=== PATIENT | male | born 1985 | race Caucasian/White ===

== ENCOUNTER 2022-04-07 20:54 | Inpatient (IN) | payer OTHER, SELFPAY ==
--- NOTE | ~2022-04-07 | CT_ITS ---
Non-contrast Head CT History: Decreased responsiveness Technique: Axial non-contrast imaging of the brain was performed. Dose reduction technique was used on this scan by utilizing automated exposure control and iterative reconstruction technique. The dose -length product (DLP) was 681.00 mGy-cm. Findings: There is no evidence of intracranial hemorrhage, mass lesion, or acute infarct. Bifrontal encephalomalacia suggests sequelae of remote brain contusions. The ventricles and subarachnoid space s are normal in size. The calvarium appears normal. The visualized paranasal sinuses and mastoid ai r cells are clear. Impression: No acute abnormality seen. 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 Reviewed, dictated and finalized at location . ING TRUCK DRIVER Impression: No acute abnormality seen. 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
--- NOTE | ~2022-04-07 | XR_ITS ---
Portable chest x-ray Comparison: 04/09/2022 Clinical History: Respiratory failure Findings: Lungs are clear, without focal consolidation or pleural effusion. Cardiomediastinal silho uette is stable. Bones and soft tissues are unremarkable. Impression: Normal chest. Reviewed, dictated and finalized at [facility]. LED NURSING PROFESSIONAL Impression: Normal chest.
--- NOTE | ~2022-04-07 | XR_ITS ---
Portable chest x-ray Comparison: 04/08/2022 Clinical History: Respiratory failure Findings: Endotracheal tube and NG tube are in satisfactory positions. Lungs are essentially clear, without focal consolidation or pleural effusion. Cardiomediastinal silhouette is stable. Bones and s oft tissues are unremarkable. Impression: Support tubes, as above. Clear lungs. Reviewed, dictated and finalized at location M. E CARE PHYSICAL THERAPIST Impression: Support tubes, as above. Clear lungs.
--- NOTE | ~2022-04-07 | XR_ITS ---
Portable chest x-ray Comparison: 04/07/2022 Clinical History: Tube placement Findings: Endotracheal tube is present, tip in the right mainstem bronchus. NG tube in satisfactory addition. There is extensive haziness at the left lung with probable left-sided volume loss and leftw krishna mediastinal shift. There is mild groundglass opacity in the right upper lobe, with minimal involv ement in the right lower lobe. Cardiomediastinal silhouette is stable. Bones and soft tissues are un remarkable. Impression: Endotracheal tube tip in the right mainstem bronchus. Retraction required. Extensive left lung haziness with left-sided volume loss, probably representing partial left lung ate lectasis. Underlying pneumonia or pulmonary edema not excluded. Groundglass pulmonary disease in the right lung, with upper lobe predominance. This could reflect pul monary edema, atypical infection, or possibly drug toxicity. Correlate clinically. Reviewed, dictated and finalized at [facility]. LEAD Impression: Endotracheal tube tip in the right mainstem bronchus. Retraction required. Extensive left lung haziness with left-sided volume loss, probably representing partial left lung atelectasis. Underlying pneumonia or pulmonary edema not exc luded. Groundglass pulmonary disease in the right lung, with upper lobe predominance. This could reflect pulmonary edema, atypical infection, or possibly drug toxici ty. Correlate clinically.
--- NOTE | ~2022-04-07 | XR_ITS ---
EXAMINATION: XR chest 1V portable DATE: 04/11/2022 05:35 INDICATION: Respiratory failure. TECHNIQUE: A single frontal view of the chest was obtained. COMPARISON: Chest single view 04/10/2022 FINDINGS: There is no pneumonia, pleural effusion, or pneumothorax. The heart size is normal. There i s an old healed right rib fracture. IMPRESSION: 1. No acute cardiopulmonary disease. Reviewed, dictated and finalized at location A. MANAGER
--- NOTE | ~2022-04-07 | XR_ITS ---
Portable chest x-ray Comparison: None Clinical History: Wheezing, shortness Findings: There is bilateral upper lobe groundglass pulmonary disease. Lung bases are clear. No pleu ral effusion or pneumothorax. Cardiomediastinal silhouette is stable. Bones and soft tissues are unr emarkable. Impression: Upper lobe predominant bilateral groundglass pulmonary disease. Correlate for atypical pulmonary chelsie a pattern, atypical infection, or possibly drug toxicity. Reviewed, dictated and finalized at location . ABLE TRACK CREW CHIEF Impression: Upper lobe predominant bilateral groundglass pulmonary disease. Correlate for a typical pulmonary edema pattern, atypical infection, or possibly drug toxicity.
--- NOTE | ~2022-04-07 | XR_ITS ---
Supine portable view of the abdomen Clinical history: Abdominal pain Findings: NG tube is in satisfactory position. Air distended stomach noted, with otherwise nonspecifi c bowel gas pattern. No evidence for obstruction or free air. No abnormal mass lesion or calcificatio n is seen. Osseous structures are intact. Impression: NG tube in satisfactory position. Reviewed, dictated and finalized at [facility]. CUSTOMER DEVELOPMENT Impression: NG tube in satisfactory position.
--- NOTE | ~2022-04-07 | XR_ITS ---
Portable chest x-ray Comparison: 04/08/2022 at 12:45 AM Clinical History: ET tube repositioning Findings: Endotracheal tube and NG tube are in satisfactory positions. There is reexpansion of the l eft lung as compared to recent prior exam. Upper lobe prominent groundglass pulmonary disease is agai n present. Cardiomediastinal silhouette is stable. Bones and soft tissues are unremarkable. Impression: Support tubes in satisfactory position, as above. Interval placement of left lung. Upper lobe predominant bilateral groundglass pulmonary disease. Correlate for atypical infection, aty pical pulmonary edema, or drug toxicity. Reviewed, dictated and finalized at location . SCIENTIST Impression: Support tubes in satisfactory position, as above. Interval placement of left dalila ng. Upper lobe predominant bilateral groundglass pulmonary disease. Correlate for a typical infection, atypical pulmonary edema, or drug toxicity.
[2022-04-07 21:01] VITALS: BP 103/79; PULSE 115; RESP 14; TEMP 36.8; O2SAT 95
--- NOTE | 2022-04-07 21:02 | ECG_ITS ---
Measurements Intervals [place] Rate: 114 P: CT: 0 QRS: 93 QRSD: 98 T: 32 QT: 330 QTc: 455 Interpretive Statements ATRIAL FIBRILLATION WITH RAPID VENTRICULAR RESPONSE RIGHT AXIS DEVIATION INCOMPLETE RIGHT BUNDLE BRANCH BLOCK BASELINE ARTIFACT- I, II, AVR, AVL, AVF, V3-V6 ABNORMAL ECG NO PREVIOUS ECG AVAILABLE FOR COMPARISON Electronically Signed On 04-08-2022 6:37:29 OIL PAINT SHADER by Cuong Thompson D.O.
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
--- NOTE | 2022-04-07 21:27 | PC.NURSE ---
pt. moved to rm 6 due to patients in 5 talking pt. states They need to quit fucking talking about me I can hear them PT. states I can read peoples minds when they are going to harm me.
[2022-04-07 21:31] VITALS: BP 104/69; PULSE 115; PULSE 119; RESP 14; RESP 25; O2SAT 93
[2022-04-07 21:41] LABS: Glucose Point of Care 217 mg/dl (65-105)
--- NOTE | 2022-04-07 21:44 | PC.NURSE ---
PT. refusing to provide staff w/ urine sample, to have an ABG drawn or a breathing tx. pt. states I don't need it and you have all the blood you knee.
[2022-04-07 21:46] LABS: Basophils Percent Auto 0.7 % (0.2-1.2); Eosinophils Absolute Auto 0.2 K/mm3 (0-0.3); Eosinophils Percent Auto 3.4 % (0-4.4); Hematocrit 44.8 % (42.0-52.0); Hemoglobin 14.4 g/dL (14.0-18.0); Immature Granulocyte Absolute 0.02 K/mm3 (0.00-0.031); Immature Granulocyte Percent A 0.3 % (0-0.5); Lymphocytes Absolute Auto 1.67 K/mm3 (0.9-3.2); Lymphocytes Percent Auto 28.3 % (18.3-44.2); Mean Corpuscular HGB Conc 32.1 g/dl (32-36); Mean Corpuscular Hemoglobin 28.9 pg (26-34); Mean Corpuscular Volume 89.8 fl (80-100); Mean Platelet Volume 11.1 fl (7.4-10.4); Monocytes Absolute Auto 0.7 K/mm3 (0.1-0.6); Monocytes Percent Auto 11.2 % (2.6-8.5); Neutrophils Absolute Auto 3.3 K/mm3 (1.3-6.7); Neutrophils Percent Auto 56.1 % (45.5-73.1); Platelet Count Result 193 k/mm3 (150-375); Red Blood Count 4.99 M/mm3 (4.6-6.20); Red Cell Distribution Width 12.5 % (11.5-14.5); White Blood Count 5.9 K/mm3 (4.5-10.0)
[2022-04-07 21:56] LABS: Alanine Aminotransferase 96 U/L (6-50); Albumin Level 4.4 g/dL (3.5-5.1); Alkaline Phosphatase 78 U/L (38-126); Anion Gap 8 mmol/L (8-16); Aspartate Amino Transferase 180 U/L (17-59); Bilirubin,Total 0.3 mg/dL (0.2-1.3); Blood Urea Nitrogen 18 mg/dL (9-20); Calcium 8.8 mg/dL (8.4-10.2); Carbon Dioxide 29 mmol/L (22-30); Chloride 98 mmol/L (98-107); Estimated Glomerular Filt Rate > 60; Glucose 265 mg/dL (65-110); Lactic Acid Reflex 3.8 mmol/L (0.7-2.0); Potassium 3.6 mmol/L (3.4-5.0); Sodium 135 mmol/L (137-145)
[2022-04-07 22:01] LABS: Partial Thromboplastin Time 26.8 SECONDS (22.3-36.8)
[2022-04-07 22:05] LABS: Ethanol < 10 mg/dL (<10); NT Pro B Type Natriuretic Pept 79 pg/mL (19.9-100)
[2022-04-07 22:10] LABS: Creatine Kinase 168 U/L (55-170); Magnesium 2.3 mg/dL (1.6-2.3)
[2022-04-07 22:23] LABS: Troponin I < 0.012 ng/mL (0.000-0.034)
--- NOTE | 2022-04-07 22:32 | PC.NURSE ---
pt. removed all monitoring devices and refuses to keep them on.
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
[2022-04-07 23:22] VITALS: BP 135/94; PULSE 134; RESP 14; O2SAT 100
--- NOTE | 2022-04-07 23:35 | PC.NURSE ---
1108 ERP placed nasal trumpet on R nare
[2022-04-07 23:56] LABS: Barbiturate Screen Urine Negative (Negative); Benzodiazepines Screen Urine Negative (Negative)
[2022-04-07 23:57] LABS: Cannabinoid Screen Urine Positive (Negative); Cocaine Screen Urine Negative (Negative); Methadone Screen Urine Negative (Negative); Opiate Screen Urine Negative (Negative); Phencyclidine Screen Urine Negative (Negative)
[2022-04-08] VITALS (51 sets, daily range): BP systolic 101–127; BP diastolic 63–88; PULSE 52–84; RESP 13–19; TEMP 36.3–37.3; O2SAT 95–100; BMI 21.7
[2022-04-08 00:11] LABS: Appearance Urine Clear (Clear); Bilirubin Urine Negative (Negative); Blood Urine 2+ (Negative); Color Urine Yellow (Yellow); Glucose Urine UA Trace mg/dL (Negative); Ketones Urine Negative (Negative); Leukocyte Esterase Ur Negative LEU/UL (Negative); Nitrate Urine Negative (Negative); Protein Urine 2+ mg/dL (Negative); Specific Grav Ur >= 1.030 (1.001-1.035); Urobilinogen Urine 0.2 mg/dL (<2.0); pH Urine 5.5 (5.0-9.0)
[2022-04-08 00:13] LABS: Amphetamine Screen Urine Positive (Negative)
[2022-04-08 00:18] LABS: Bacteria Urine Trace /hpf; Mucus Urine Rare /lpf; RBC Urine 21-50 /hpf (0-2); Squamous Epithelial Cell Urine Rare /hpf (Few)
[2022-04-08 00:19] LABS: Add Urine Microscopic? YES
--- NOTE | 2022-04-08 00:30 | PC.NURSE ---
Addendum entered by Victorina Valderrama RN 04/08/22 02:11: 50 mg Rocuronium given IVP Original Note: 0030 rocuronium IVP given VORB ERP Carrero 0031 pt. intubated w/ 8.0 ET tube measuring 26 at the teeth. bilat. breath sounds heard by ERP and positive color change was noted
[2022-04-08 00:43] LABS: Reflex Lactic Acid Yes or No Add Lactic
--- NOTE | 2022-04-08 00:55 | PC.NURSE ---
pt. ET tube pulled 4 CM ET tube now measuring at 22 at the lip.
[2022-04-08] MEDS: SODIUM CHLORIDE 0.9% IV 1,000 ML 999 ML IV CONT (01:00)
[2022-04-08 01:09] LABS: Alveolar/Arterial O2 Gradient 301.5 mmHg; Base Excess ABG -4.3 mEq/l (+/-2.0); Carboxyhemoglobin 1.3 % THb (0-2.0); Fractional Inspired Oxygen 70 %; HCO3 ABG 21.7 mEq/l (22.0-26.0); Methemoglobin ABG 0.4 %THb (0-1.5); Oxygen Content ABG 20.4 %vol (16.0-22.0); Oxygen Saturation ABG 98.8 % (95.0-100.0); Oxyhemoglobin 96.8 % THb (90.0-100.0); PCO2 ABG 43.1 mmHg (35.0-45.0); PO2 ABG 151.3 mmHg (80.0-100.0); PO2 FiO2 Ratio Arterial Blood 2.16 %; Reduced Hemoglobin 1.5 %THb (0-5.0); Site Drawn RIGHT BRACHIAL; Total Hemoglobin 14.8 g/dL (12.0-18.0)
[2022-04-08] MEDS: SODIUM CHLORIDE 0.9% IV 1,000 ML 999 ML (01:09)
[2022-04-08 01:10] LABS: Arterial Blood Gas Vent Mode CMV; Arterial Blood Gas Ventilator rate 18 /MIN; Device VENTILATOR
[2022-04-08 01:11] LABS: Arterial Blood Gas PEEP 5 cmH2O; Arterial Blood Gas Tidal Volume 420 ml
[2022-04-08] MEDS: PROPOFOL IV EMULSION 100 ML 2.12 MG IV CONT (01:20)
[2022-04-08] MEDS: SODIUM CHLORIDE 0.9% IV 1,000 ML 125 ML IV CONT (02:53)
--- NOTE | 2022-04-08 02:57 | ADMGEN ---
This patient, Hernandez Saldaña, was admitted to Intensive Care Unit-1. Patient/family oriented to hospital policies and general routines including ID bracelet, bed and alarms, visiting hours, pain management, procedures, bathroom and other care routines, personal items, smoking policy, room service/diet, and visiting hours. Information on how to activate the Rapid Response Team has been discussed. Patient/Family are encouraged to report perceived risks to care and to ask questions if they do not understand what they are told or what they should do.
[2022-04-08] MEDS: ALBUTEROL SULFATE NEB 2.5 MG/3 ML INH INHALATION ×4 (03:04→19:37)
[2022-04-08] MEDS: IPRATROPIUM BR 0.02% INH SOLN 0.5 MG/2.5 ML VIAL INHALATION ×4 (03:04→19:36)
[2022-04-08 03:38] LABS: Lactic Acid 1.2 mmol/L (0.7-2.0)
[2022-04-08 05:58] LABS: Base Excess ABG -2.2 mEq/l (+/-2.0); Carboxyhemoglobin 0.3 % THb (0-2.0); Fractional Inspired Oxygen 30 %; HCO3 ABG 22.8 mEq/l (22.0-26.0); Methemoglobin ABG 0.3 %THb (0-1.5); Oxygen Content ABG 18.5 %vol (16.0-22.0); Oxygen Saturation ABG 97.3 % (95.0-100.0); Oxyhemoglobin 95.7 % THb (90.0-100.0); PCO2 ABG 39.9 mmHg (35.0-45.0); PO2 FiO2 Ratio Arterial Blood 3.23 %; Reduced Hemoglobin 3.7 %THb (0-5.0); Total Hemoglobin 13.7 g/dL (12.0-18.0); pH ABG 7.375 (7.350-7.450)
[2022-04-08 06:00] LABS: Arterial Blood Gas PEEP 5 cmH2O; Arterial Blood Gas Tidal Volume 420 ml; Arterial Blood Gas Vent Mode CMV; Arterial Blood Gas Ventilator rate 18 /MIN; Device VENTILATOR; Site Drawn LEFT BRACHIAL
[2022-04-08] MEDS: PROPOFOL IV EMULSION 100 ML 12.74 MG IV CONT (06:31)
--- NOTE | 2022-04-08 06:47 | ED.OVERDOSE ---
HPI - Overdose General Chief Complaint: Overdose Stated Complaint: od Time Seen by Provider: 04/07/22 21:02 Source: patient, EMS and RN notes reviewed Mode of arrival: EMS Limitations: intoxication History of Present Illness HPI Narrative: This is a 37 year old male who presents viA EMS for evaluation of overdose. 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 EMS gave patient 2 mg narcan IM and 2 mg narcan IV. Patient became responsive and combative. [place] Police have arrived with patient. Patient states that he has history of CHF and bone CA . He states he was diagnosed 3 years ago but he has not had medical care since. He reports history of using heroin over 15 years ago but denies any drugs today. He states he does not know what happen. Patient is difficult history and paranoid. He denies any current pain or issues. Related Data Home Medications Medication Instructions Recorded Confirmed No Home Medications 04/08/22 04/08/22 Allergies Allergy/AdvReac Type Severity Reaction Status Date / Time No Known Allergies Allergy Verified 04/07/22 21:31 Review of Systems Review of Systems: ROS unobtainable: Yes other (intoxication) Constitutional: Constitutional: Denies weakness Cardiovascular: Cardiovascular: Denies syncope, Denies rapid heart rate, Denies irregular heart rhythm, Denies leg edema and Denies dyspnea Respiratory: Respiratory: Denies chest congestion, Denies hemoptysis, Denies excessive phlegm production and Denies dyspnea Gastrointestinal: Gastrointestinal: Denies abdominal pain, Denies hematochezia, Denies diarrhea and Denies vomiting Genitourinary: Genitourinary: Denies hematuria, Denies dysuria, Denies penile discharge and Denies testicular pain Musculoskeletal: Musculoskeletal: Denies joint swelling, Denies loss of height and Denies muscle weakness Neurologic: Denies syncope, Denies focal weakness and Denies weakness PMFSH Past Medical History Medical History (Updated 04/08/22 @ 15:51 by Isabela Carrero MD) Medical history unknown Surgical History Surgical History (Updated 04/08/22 @ 15:22 by Isabela Carrero MD) Surgical history unknown Social History Social History Spiritual care concerns: No Exam Const: General: alert Nutritional Appearance: thin Limitations: behavioral limitations Other: oriented to person and age, he is refusing to answer all questions HENMT: Head: normal to inspection Face and sinus: normal facial exam Eyes: EOM: EOMs intact bilaterally Other: pinpoint pupils Neck: Neck: normal visual inspection Chest: Chest palpation & inspection: normal inspection of the chest Resp: Effort & Inspection: normal respiratory effort Auscultation: wheezes expiratory wheezes and throughout Cardio: Rate: tachycardic Rhythm: abnormal rhythm Heart sounds: no murmurs GI: GI Palp: Yes Soft to palpation, No Tenderness to palpation present (GI), No Guarding due to palpation present (GI) and No Rigid due to palpation Auscultation: normal bowel sounds : Penis: Yes normal penis and Yes circumcised Skin: General skin exam: normal color Rashes: no rashes Neuro: General: moves all extremities, no focal motor deficits and CN's II-XI intact bilaterally Cranial nerves: Yes Nystagmus not present Speech: normal speech Extrem: General: normal to inspection and no pedal edema Psych: Appearance: disheveled Affect: Irritable affect present Attitude: Belligerent attititude/behavior present (intermittent) and Refuses to answer (attititude/behavior) Insight: Poor insight present (Psych) Course Course Emergency Course: Patient presented to ER after presumed drug overdose. Patient was paranoid and intermittently cooperative. During the course of visit, he started becoming less cooperative. He took out his IV and he was asking to leave. Patient could not
[2022-04-08 07:47] LABS: Glucose Point of Care 75 mg/dl (65-105)
--- NOTE | 2022-04-08 07:57 | ECG_ITS ---
Measurements Intervals [place] Rate: 58 P: 71 AR: 133 QRS: 88 QRSD: 95 T: 78 QT: 430 QTc: 425 Interpretive Statements SINUS BRADYCARDIA BORDERLINE ECG COMPARED TO ECG 04/07/2022 21:33:05 SINUS BRADYCARDIA NOW PRESENT Electronically Signed On 04-08-2022 9:42:30 EXECUTIVE TEAM LEADER by Cuong Thompson D.O.
[2022-04-08 08:54] LABS: Basophils Percent Auto 0.4 % (0.2-1.2); Eosinophils Absolute Auto 0.1 K/mm3 (0-0.3); Eosinophils Percent Auto 0.6 % (0-4.4); Hemoglobin 13.1 g/dL (14.0-18.0); Immature Granulocyte Absolute 0.02 K/mm3 (0.00-0.031); Immature Granulocyte Percent A 0.2 % (0-0.5); Lymphocytes Percent Auto 21.2 % (18.3-44.2); Mean Corpuscular HGB Conc 32.8 g/dl (32-36); Mean Corpuscular Hemoglobin 29.7 pg (26-34); Mean Corpuscular Volume 90.7 fl (80-100); Mean Platelet Volume 10.7 fl (7.4-10.4); Monocytes Percent Auto 10.4 % (2.6-8.5); Neutrophils Absolute Auto 6.3 K/mm3 (1.3-6.7); Neutrophils Percent Auto 67.2 % (45.5-73.1); Platelet Count Result 188 k/mm3 (150-375); Red Blood Count 4.41 M/mm3 (4.6-6.20); Red Cell Distribution Width 12.8 % (11.5-14.5); White Blood Count 9.4 K/mm3 (4.5-10.0)
[2022-04-08 09:06] LABS: Ammonia < 9 umol/L (9-30)
[2022-04-08 09:07] LABS: Alanine Aminotransferase 71 U/L (6-50); Albumin Level 3.4 g/dL (3.5-5.1); Alkaline Phosphatase 74 U/L (38-126); Anion Gap 3 mmol/L (8-16); Aspartate Amino Transferase 69 U/L (17-59); Bilirubin,Total 0.4 mg/dL (0.2-1.3); Blood Urea Nitrogen 15 mg/dL (9-20); Calcium 7.8 mg/dL (8.4-10.2); Carbon Dioxide 27 mmol/L (22-30); Chloride 105 mmol/L (98-107); Creatine Kinase 628 U/L (55-170); Estimated Glomerular Filt Rate > 60; Glucose 73 mg/dL (65-110); Magnesium 2.1 mg/dL (1.6-2.3); Phosphorus 2.9 mg/dL (2.5-4.5); Sodium 135 mmol/L (137-145)
[2022-04-08] MEDS: LACTATED RINGERS 1,000 ML 100 ML IV CONT (09:19)
[2022-04-08] MEDS: ENOXAPARIN 40 MG/0.4 ML SYRINGE SUB-Q (09:22)
[2022-04-08] MEDS: PANTOPRAZOLE SODIUM IV 40 MG VIAL IV PUSH (09:22)
[2022-04-08] MEDS: MINERAL OIL/WHITE PETROLATUM OINTMENT 1 APPLIC EACH EYE ×2 (09:23→20:54)
--- NOTE | 2022-04-08 09:45 | WPDCNINT ---
Assessment and Plan Assessment and plan (1) Acute respiratory failure: Code(s): J96.00 - Acute respiratory failure, unspecified whether with hypoxia or hypercapnia Status: Acute Assessment and Plan: Acute Respiratory failure secondary to toxic encephalopathy Continue full mechanical ventilation support to prevent hypoxemia/hypercarbia and end organ damage. ABG and PCXR reviewed and will repeat in am. IV access patient for a weaning trial this morning and I placed him on pressure support 5/5 patient kept on going into apnea mode. Patient was placed back on CMV I will give him more time for the drugs to wear off before re attempting weaning trial Treatment for aspiration pneumonia as below (2) Encephalopathy: Code(s): G93.40 - Encephalopathy, unspecified Status: Acute Assessment and Plan: Likely toxic encephalopathy secondary to drug abuse. Patient admitted to taking amphetamine marijuana and alcohol His toxicology screen was positive for amphetamine and marijuana although his alcohol level was negative Head CT No acute abnormality seen. 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 Monitor for signs of seizures Check ammonia and TSH level (3) Aspiration pneumonia: Code(s): J69.0 - Pneumonitis due to inhalation of food and vomit Status: Acute Assessment and Plan: Chest x-ray suggest infiltrate in the right upper lobe which could be aspiration Empiric Zosyn and doxycycline to cover for aspiration and community-acquired pneumonia Blood and sputum culture Check [place] Legionella and pneumococcal antigen to cover for community-acquired pneumonia (4) Rhabdomyolysis: Code(s): M62.82 - Rhabdomyolysis Status: Acute Assessment and Plan: CK mildly elevated. Monitor level Continue IV fluids Plan DVT prophylaxis -Lovenox Stress ulcer prophylaxis -Protonix Nutrition -start Tube Feeds if unable to extubate today Code Status - Full Code Total Critical Care Time - minutes Due to a high probability of clinically significant, life threatening deterioration, the patient required my highest level of preparedness to intervene emergently and I personally spent this critical care time directly and personally managing the patient. This critical care time included obtaining a history; examining the patient; pulse oximetry; ordering and review of studies; arranging urgent treatment with development of a management plan; evaluation of patient's response to treatment; frequent reassessment; and discussions with other providers. It was exclusive of separately billable procedures and treating other patients and teaching time. Please see Assessment and Plan section and the rest of the note for further information on patient assessment and treatment Copying Machine Mechanic Consult Note Consult date: 04/08/22 Reason for consult: Acute respiratory failure, encephalopathy HPI: Hernandez Saldaña is a 37 year old male with unknown past medical surgical family and social history who was brought to ER yesterday after he was found unresponsive reconstruction side. Patient was found unresponsive with snoring respiration by police. Patient was given Narcan. In ER patient was responsive but confused and drowsy. Later in the ED patient became uncooperative, agitated and combative. He was sedated intubated by ED physician. Urine drug screen positive for methamphetamine and marijuana. Patient was intubated and sedated and admitted to ICU for further evaluation management. No past notes in the chart no detailed in ED physician note in the chart information was mostly obtained from the sign-out I received from the ED physician last night. No family available. Patient now on holding sedation is responsive and following commands and admitted by noting his head to taking meth alcohol and marijuana yesterday. Review of Systems Review of Systems: ROS unobtainable:
[2022-04-08] MEDS: DOXYCYCLINE 100 MG/NS 100 ML 100 MG/100 ML BAG IVPB ×2 (10:56→20:54)
[2022-04-08 11:38] LABS: Glucose Point of Care 73 mg/dl (65-105)
[2022-04-08] MEDS: DEXTROSE 5%/LACTATED RINGERS 1,000 ML 100 ML IV CONT ×2 (12:13→23:58)
--- NOTE | 2022-04-08 14:06 | PCDIET ---
Brief note: Propofol was started @12.75 ml/h for total 336 kcals. Recommended keeping Vital 1.2 @ current rate of 50 ml/h and titrate up once propofol is reduced. Lovely Banks RD LDN
--- NOTE | 2022-04-08 15:31 | PM.IMHP ---
H&P: HPI History of Present Illness Date/Time: 04/08/22 15:31 Chief Complaint: illicite drug OD Narrative: ED-HPI Narrative: This is a 37 year old male who presents viA EMS for evaluation of overdose. ? 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 EMS gave patient 2 mg narcan IM and 2 mg narcan IV.? Patient became responsive and combative. [place] Police have arrived with patient. ? Patient states that he has history of CHF and bone CA .? He states he was diagnosed 3 years ago but he has not had medical care since.? He reports history of using heroin over 15 years ago but denies any drugs today. He states he does not know what happen.? Patient is difficult history and paranoid. ? He denies any current pain or issues.? patient was brought to the emergency department by EMS patient was found difficulty with breathing and positive methenamine and cannabis, in ER patient was uncooperative combative and patient was intubated and admitted into ICU a trial of weaning the patient off ventilator failed and patient is currently intubated unable few symptoms or history. patient is admitted with respiratory failure remain in hospital for 2 midnights Review of Systems Review of Systems: ROS unobtainable: Yes unobtainable due to endotracheal tube PMFSH Past Medical History Medical History (Updated 04/08/22 @ 15:22 by Isabela Carrero MD) Medical history unknown Surgical History Surgical History (Updated 04/08/22 @ 15:22 by Isabela Carrero MD) Surgical history unknown Social History Social History Spiritual care concerns: No Meds Home Medications and Allergies Home Medications Medication Instructions Recorded Confirmed Type No Home Medications 04/08/22 04/08/22 History Allergies Allergy/AdvReac Type Severity Reaction Status Date / Time No Known Allergies Allergy Verified 04/07/22 21:31 Vital Signs Vital Signs - 24 hr 04/07/22 21:01 04/07/22 21:31 04/07/22 21:31 Temperature 98.2 F Pulse Rate 115 H 115 H Respiratory Rate 14 14 Blood Pressure 103/79 Pulse Oximetry 95 Oxygen Delivery Room Air Fraction of Inspired Oxygen 04/07/22 21:31 04/07/22 23:22 04/08/22 00:48 Temperature Pulse Rate 119 H 134 H Respiratory Rate 25 H 14 Blood Pressure 104/69 135/94 H Pulse Oximetry 93 100 100 Oxygen Delivery Mechanical Ventilation Fraction of Inspired Oxygen 100 04/08/22 00:53 04/08/22 01:08 04/08/22 01:20 Temperature Pulse Rate 84 82 Respiratory Rate 18 18 Blood Pressure 118/81 Pulse Oximetry 100 100 Oxygen Delivery Mechanical Ventilation Fraction of Inspired Oxygen 70 04/08/22 01:25 04/08/22 01:30 04/08/22 01:21 Temperature Pulse Rate 80 77 81 Respiratory Rate 19 19 18 Blood Pressure Pulse Oximetry 100 Oxygen Delivery Fraction of Inspired Oxygen 04/08/22 01:30 04/08/22 01:31 04/08/22 01:43 Temperature Pulse Rate 78 77 74 Respiratory Rate 18 18 18 Blood Pressure 119/88 112/78 Pulse Oximetry 100 100 100 Oxygen Delivery Fraction of Inspired Oxygen 04/08/22 01:45 04/08/22 01:46 04/08/22 02:00 Temperature Pulse Rate 76 77 75 Respiratory Rate 18 18 18 Blood Pressure 114/81 112/78 Pulse Oximetry 100 100 100 Oxygen Delivery Fraction of Inspired Oxygen 04/08/22 02:00 04/08/22 02:49 04/08/22 02:30 Temperature Pulse Rate 74 68 81 Respiratory Rate 18 18 18 Blood Pressure Pulse Oximetry 100 98 Oxygen Delivery Mechanical Ventilation Fraction of Inspired Oxygen 30 04/08/22 02:50 04/08/22 03:07 04/08/22 03:11 Temperature Pulse Rate 70 70 70 Respiratory Rate 18 18 Blood Pressure Pulse Oximetry 95 Oxygen Delivery Mechanical Ventilation Fraction of Inspired Oxygen 30 04/08/22 03:00 04/08/22 04:00 04/08/22 04:00 Temperature 97.7 F Pulse Rate 67 67 67 Respirato
[2022-04-08 17:21] LABS: Glucose Point of Care 93 mg/dl (65-105)
[2022-04-08] MEDS: PROPOFOL IV EMULSION 100 ML 14.87 MG IV CONT (20:24)
[2022-04-08 23:59] LABS: Glucose Point of Care 105 mg/dl (65-105)
[2022-04-09] VITALS (28 sets, daily range): BP systolic 114–148; BP diastolic 63–86; PULSE 58–93; RESP 12–20; TEMP 36.4–37.2; O2SAT 97–100
[2022-04-09] MEDS: IPRATROPIUM BR 0.02% INH SOLN 0.5 MG/2.5 ML VIAL INHALATION ×4 (02:00→21:26)
[2022-04-09] MEDS: ALBUTEROL SULFATE NEB 2.5 MG/3 ML INH INHALATION ×4 (02:00→21:26)
[2022-04-09] MEDS: PROPOFOL IV EMULSION 100 ML 14.87 MG IV CONT (04:20)
[2022-04-09 04:57] LABS: Basophils Absolute Auto 0.1 K/mm3 (0.0-0.1); Basophils Percent Auto 0.7 % (0.2-1.2); Eosinophils Absolute Auto 0.2 K/mm3 (0-0.3); Eosinophils Percent Auto 2.3 % (0-4.4); Hematocrit 39.2 % (42.0-52.0); Hemoglobin 12.7 g/dL (14.0-18.0); Immature Granulocyte Absolute 0.02 K/mm3 (0.00-0.031); Immature Granulocyte Percent A 0.3 % (0-0.5); Lymphocytes Absolute Auto 1.31 K/mm3 (0.9-3.2); Lymphocytes Percent Auto 17.9 % (18.3-44.2); Mean Corpuscular HGB Conc 32.4 g/dl (32-36); Mean Corpuscular Hemoglobin 29.9 pg (26-34); Mean Corpuscular Volume 92.2 fl (80-100); Mean Platelet Volume 11.5 fl (7.4-10.4); Monocytes Absolute Auto 0.9 K/mm3 (0.1-0.6); Monocytes Percent Auto 11.8 % (2.6-8.5); Neutrophils Absolute Auto 4.9 K/mm3 (1.3-6.7); Platelet Count Result 197 k/mm3 (150-375); Red Blood Count 4.25 M/mm3 (4.6-6.20); White Blood Count 7.3 K/mm3 (4.5-10.0)
[2022-04-09 05:02] LABS: Alveolar/Arterial O2 Gradient 65.4 mmHg; Arterial Blood Gas PEEP 5 cmH2O; Arterial Blood Gas Vent Mode CMV; Arterial Blood Gas Ventilator rate 18 /MIN; Base Excess ABG 2.2 mEq/l (+/-2.0); Device VENTILATOR; Fractional Inspired Oxygen 30 %; HCO3 ABG 27.8 mEq/l (22.0-26.0); Methemoglobin ABG 0.2 %THb (0-1.5); Modified Allen's Test Unable to perform; Oxygen Content ABG 18.1 %vol (16.0-22.0); Oxyhemoglobin 96.5 % THb (90.0-100.0); PCO2 ABG 47.2 mmHg (35.0-45.0); Reduced Hemoglobin 3.3 %THb (0-5.0); Site Drawn RIGHT RADIAL; Total Hemoglobin 13.3 g/dL (12.0-18.0); pH ABG 7.388 (7.350-7.450)
[2022-04-09 05:03] LABS: Arterial Blood Gas Tidal Volume 420 ml
[2022-04-09 05:10] LABS: Alanine Aminotransferase 59 U/L (6-50); Albumin Level 3.3 g/dL (3.5-5.1); Alkaline Phosphatase 67 U/L (38-126); Anion Gap 2 mmol/L (8-16); Aspartate Amino Transferase 55 U/L (17-59); Bilirubin,Total 0.4 mg/dL (0.2-1.3); Blood Urea Nitrogen 14 mg/dL (9-20); Calcium 8.1 mg/dL (8.4-10.2); Carbon Dioxide 29 mmol/L (22-30); Chloride 104 mmol/L (98-107); Estimated CRCL calculation 90 ml/min; Estimated Glomerular Filt Rate > 60; Glucose 117 mg/dL (65-110); Potassium 3.9 mmol/L (3.4-5.0); Sodium 135 mmol/L (137-145)
--- NOTE | 2022-04-09 07:46 | PC.NURSE ---
At 0708, patients ventilator alarms began to sound low tidal volume , this nurse and the shift production supervisor nurse went to assess patient condition. Patient at time was drowsy with ventilator alarms still sounding. Patient was suctioned out and alarms resolved. Patient became alert after suctioning and continued to become increasingly agitated. Patient currently on 35 mcg/kg/min of propofol for sedation on vent. Patient started thrashing around, kicking and grabbing at staff. This nurse and a second nurse trying to calm and redirect patient. Patient became even more agitated grabbing at tubes and lines. Patient got ahold of ET and OG tubes while nursing staff still intervening. Patient pulled both ET tubes and OG tubes out of placement and was declared self extubated at 0710. Propofol and tube feedings placed on hold. A third nurse assisted with placement of 4L NC of supplemental oxygen in place. Patient saturations noted to be at 100% with good respiratory drive. Patient alert and speaking clearly. Respiratory therapy notified, and Emergency room physician notified who came up to ICU room [address] and [address] Dr[address] Ivan called and updated via telephone.
[2022-04-09 08:07] LABS: Creatine Kinase 946 U/L (55-170)
--- NOTE | 2022-04-09 08:51 | WPDINTPN ---
Progress Note: A&P Assessment and Plan (1) Acute respiratory failure: Code(s): J96.00 - Acute respiratory failure, unspecified whether with hypoxia or hypercapnia Status: Acute Assessment and Plan: Acute Respiratory failure secondary to toxic encephalopathy I attempted weaning trial yesterday but patient did not pass weaning trial due to multiple episodes of apnea despite him being awake and following commands intermittently. this morning he self-extubated. Currently on nasal cannula and doing well. no respiratory distress. no stridor or wheezing continue to monitor ABG and chest x-ray reviewed incentive spirometry up in chair Treatment for aspiration pneumonia as below (2) Encephalopathy: Code(s): G93.40 - Encephalopathy, unspecified Status: Acute Assessment and Plan: Likely toxic encephalopathy secondary to drug abuse. Patient admitted to taking amphetamine marijuana denies any suicidal or homicidal ideation or attempts His toxicology screen was positive for amphetamine and marijuana although his alcohol level was negative Head CT No acute abnormality seen. 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 Monitor for signs of seizures normal ammonia and TSH level (3) Aspiration pneumonia: Code(s): J69.0 - Pneumonitis due to inhalation of food and vomit Status: Acute Assessment and Plan: Chest x-ray suggest infiltrate in the right upper lobe which could be aspiration currently on empiric Zosyn and doxycycline to cover for aspiration and community-acquired pneumonia I will switch to p.o. Augmentin Blood cultures pending pending Legionella and pneumococcal antigen (4) Rhabdomyolysis: Code(s): M62.82 - Rhabdomyolysis Status: Acute Assessment and Plan: CK mildly elevated. Monitor level Continue IV fluids for now Plan DVT prophylaxis -Lovenox Stress ulcer prophylaxis -Protonix Nutrition - start regular diet Code Status - Full Code incentive spirometry, kevin Parkinson in chair Subjective Date/time seen: 04/09/22 yesterday patient was trial for weaning and had multiple apnea episodes hence patient was not extubated. This morning he self-extubated and is doing well. he is now on 4 L nasal cannula and saturating adequately. he is alert awake oriented and in no respiratory distress. he admitted to using methamphetamine and marijuana but denies any alcohol intake. Denies any suicidal homicidal ideation. does not take any medications and states that he has history of PTSD. 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 At this time he states he is hungry and would like to eat food at denies any complaints. Patient denies fever, chest pain, shortness of breath, cough, nausea vomiting, abdominal pain,, diarrhea, headache or constipation. All other systems were reviewed and were negative Review of Systems Review of Systems: All systems reviewed & are unremarkable except as noted in HPI and below ( subjective) Exam Narrative: General: Pt is alert awake and in NAD Lungs/Chest: Trachea central Clear BS B/L, No crackles or wheezing. Cardiac: RRR. Normal S1 S2. No murmurs Circulation: Pedal pulses are intact and symmetrical. Abdomen: Normal bowel sounds.. Soft. NT. ND. Extremities: No clubbing, cyanosis or edema. Warm : Saha in place Neurologic: Follows commands. Moves all 4 extremities PERRL alert oriented Skin: multiple tattoos all over body Objective Data Vital Signs Vital Signs: Vital Signs - 24 hr 04/08/22 10:00 04/08/22 10:00 04/08/22 10:30 Temperature Pulse Rate 67 67 56 L Respiratory Rate 18 Blood Pressure 123/70 Pulse Oximetry 97 98 Oxygen Delivery Mechanical Ventilation Oxygen Flow Rate Fraction of Inspired Oxygen 30 04/08/22 11:42 04/08/22 11:45 04/08/22 11:51 Temperature 36.4 C Pulse Rate 55 L Respiratory Rate 16 Blood Pressure 123/7
[2022-04-09] MEDS: AMOXICILLIN/CLAVULANATE K 875-125 MG TAB 1 TABLET PO ×2 (09:18→20:59)
--- NOTE | 2022-04-09 10:43 | PCFNICU ---
ICU Rounding Note: Pt current nutrition is Regular. Last recorded weight is 64.7 kg. Bowel Motility:No Bm reported. Labs Reviewed: Na 135, Alb 3.3,Hct 39.2,Hgb 12.7 Meds Noted:Atrovent, Dextrose Skin: WNL Additional Notes: Patient self extubated today. Diet order has been advanced to a regular diet. Tray has been ordered per nursing. Agree with diet orders. Monitoring: No further nutritional interventions needed. Monitor for LOS every 7 days.
[2022-04-09 11:43] LABS: Glucose Point of Care 217 mg/dl (65-105)
[2022-04-09] MEDS: LACTATED RINGERS 1,000 ML 100 ML IV CONT ×2 (11:45→22:31)
--- NOTE | 2022-04-09 16:54 | PM.IMPN ---
Progress Note: A&P Assessment and Plan (1) Acute respiratory failure: Code(s): J96.00 - Acute respiratory failure, unspecified whether with hypoxia or hypercapnia Status: Acute Assessment and Plan: ED-HPI Narrative: This is a 37 year old male who presents [facility] for evaluation of overdose. ? 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 EMS gave patient 2 mg narcan IM and 2 mg narcan IV.? Patient became responsive and combative. [place] [employer] have arrived with patient. ? Patient states that he has history of CHF and bone CA .? He states he was diagnosed 3 years ago but he has not had medical care since.? He reports history of using heroin over 15 years ago but denies any drugs today. He states he does not know what happen.? Patient is difficult history and paranoid. ? He denies any current pain or issues.? 04/09/2022 interval history: patient was brought to the emergency department by EMS patient was found difficulty with breathing and positive methenamine and cannabis, in ER patient was uncooperative combative and patient was intubated and admitted into ICU, today patient self-extubated, currently patient is alert and orient he wants to leave AMA however patient with rhabdomyolysis and elevated CK level, patient kidney function is normal will continue to monitor and hydrate the patient, further recommendation to follow. (2) Aspiration pneumonia: Code(s): J69.0 - Pneumonitis due to inhalation of food and vomit Status: Acute Assessment and Plan: patient was somnolent suspect have aspiration pneumonia upon arrival being treated with doxycycline and Zosyn (3) Rhabdomyolysis: Code(s): M62.82 - Rhabdomyolysis Status: Acute Assessment and Plan: patient had taken methenamine and cannabis upon arrival patient was combative resulted in rhabdomyolysis (4) Encephalopathy: Code(s): G93.40 - Encephalopathy, unspecified Status: Acute Assessment and Plan: secondary to illicit drug methenamine and cannabis currently sedated Subjective Date/time seen: 04/09/22 16:54 ED-HPI Narrative: This is a 37 year old male who presents [facility] for evaluation of overdose. ? 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 EMS gave patient 2 mg narcan IM and 2 mg narcan IV.? Patient became responsive and combative. [place] [employer] have arrived with patient. ? Patient states that he has history of CHF and bone CA .? He states he was diagnosed 3 years ago but he has not had medical care since.? He reports history of using heroin over 15 years ago but denies any drugs today. He states he does not know what happen.? Patient is difficult history and paranoid. ? He denies any current pain or issues.? 04/09/2022 interval history: patient was brought to the emergency department by EMS patient was found difficulty with breathing and positive methenamine and cannabis, in ER patient was uncooperative combative and patient was intubated and admitted into ICU, today patient self-extubated, currently patient is alert and orient he wants to leave AMA however patient with rhabdomyolysis and elevated CK level, patient kidney function is normal will continue to monitor and hydrate the patient, further recommendation to follow. Review of Systems Review of Systems: All systems reviewed & are unremarkable except as noted in HPI and below ( subjective) Exam Narrative: Patient is comfortable, NAD HEENT: Freddy clear and nonicteric LUNGS: normal respiratory effort ABD: not distended Lower extremities: no edema SKIN: nonjaundiced Neuro: patient alert and orientedx3. Objective Data Vital Signs Vital Signs: Vital Signs - 24 hr 04/08/22 17:05 04/08/22 17:11 04/08/22 18:00 Temperature Pulse Rate 56 L 55 L 52 L Respiratory Rate 18 Blood Pressure Pulse Oximetry 100 Oxygen Delivery Mec
[2022-04-09] MEDS: LIDOCAINE 5% PATCH 1 PATCH TRANSDERM (20:08)
[2022-04-09] MEDS: MINERAL OIL/WHITE PETROLATUM OINTMENT 1 APPLIC EACH EYE (21:01)
[2022-04-10] VITALS (12 sets, daily range): BP systolic 110–122; BP diastolic 63–67; PULSE 55–107; RESP 18–20; TEMP 36.4–36.9; O2SAT 97–98
[2022-04-10 05:13] LABS: Hemoglobin 13.6 g/dL (14.0-18.0); Mean Corpuscular HGB Conc 32.4 g/dl (32-36); Mean Corpuscular Hemoglobin 29.4 pg (26-34); Mean Corpuscular Volume 90.7 fl (80-100); Platelet Count Result 197 k/mm3 (150-375); Red Blood Count 4.63 M/mm3 (4.6-6.20); Red Cell Distribution Width 12.6 % (11.5-14.5); White Blood Count 7.2 K/mm3 (4.5-10.0)
[2022-04-10 05:23] LABS: Alanine Aminotransferase 52 U/L (6-50); Albumin Level 3.8 g/dL (3.5-5.1); Alkaline Phosphatase 74 U/L (38-126); Anion Gap 6 mmol/L (8-16); Aspartate Amino Transferase 45 U/L (17-59); Bilirubin,Total 0.7 mg/dL (0.2-1.3); Blood Urea Nitrogen 11 mg/dL (9-20); Calcium 8.8 mg/dL (8.4-10.2); Carbon Dioxide 29 mmol/L (22-30); Chloride 102 mmol/L (98-107); Creatine Kinase 680 U/L (55-170); Estimated CRCL calculation 100 ml/min; Estimated Glomerular Filt Rate > 60; Glucose 115 mg/dL (65-110); Magnesium 1.9 mg/dL (1.6-2.3); Potassium 4.1 mmol/L (3.4-5.0); Sodium 137 mmol/L (137-145)
[2022-04-10] MEDS: AMOXICILLIN/CLAVULANATE K 875-125 MG TAB 1 TABLET PO ×2 (08:25→20:32)
[2022-04-10] MEDS: LACTATED RINGERS 1,000 ML 100 ML IV CONT (08:26)
[2022-04-10] MEDS: ENOXAPARIN 40 MG/0.4 ML SYRINGE SUB-Q (08:28)
[2022-04-10] MEDS: CYCLOBENZAPRINE HCL 10 MG TABLET PO ×2 (08:29→20:30)
--- NOTE | 2022-04-10 12:54 | PM.IMPN ---
Progress Note: A&P Assessment and Plan (1) Acute respiratory failure: Code(s): J96.00 - Acute respiratory failure, unspecified whether with hypoxia or hypercapnia Status: Acute Assessment and Plan: ED-HPI Narrative: This is a 37 year old male who presents [facility] for evaluation of overdose. ? 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 EMS gave patient 2 mg narcan IM and 2 mg narcan IV.? Patient became responsive and combative. [place] [employer] have arrived with patient. ? Patient states that he has history of CHF and bone CA .? He states he was diagnosed 3 years ago but he has not had medical care since.? He reports history of using heroin over 15 years ago but denies any drugs today. He states he does not know what happen.? Patient is difficult history and paranoid. ? He denies any current pain or issues.? 04/10/2022 interval history: patient was brought to the emergency department by EMS patient was found difficulty with breathing and positive methenamine and cannabis, in ER patient was uncooperative combative and patient was intubated and admitted into ICU, on 04/09 patient self-extubated, now out of ICU, currently patient is alert and orient he wants to leave AMA however patient with rhabdomyolysis and elevated CK level which is trending down to 680 today compared to 946 upon arrial, patient kidney function is normal will continue to monitor and hydrate the patient, further recommendation to follow. (2) Aspiration pneumonia: Code(s): J69.0 - Pneumonitis due to inhalation of food and vomit Status: Acute Assessment and Plan: patient was somnolent suspect have aspiration pneumonia upon arrival being treated with doxycycline and Zosyn (3) Rhabdomyolysis: Code(s): M62.82 - Rhabdomyolysis Status: Acute Assessment and Plan: patient had taken methenamine and cannabis upon arrival patient was combative resulted in rhabdomyolysis (4) Encephalopathy: Code(s): G93.40 - Encephalopathy, unspecified Status: Acute Assessment and Plan: secondary to illicit drug methenamine and cannabis currently sedated Subjective Date/time seen: 04/10/22 12:54 ED-HPI Narrative: This is a 37 year old male who presents [facility] for evaluation of overdose. ? 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 EMS gave patient 2 mg narcan IM and 2 mg narcan IV.? Patient became responsive and combative. [place] [employer] have arrived with patient. ? Patient states that he has history of CHF and bone CA .? He states he was diagnosed 3 years ago but he has not had medical care since.? He reports history of using heroin over 15 years ago but denies any drugs today. He states he does not know what happen.? Patient is difficult history and paranoid. ? He denies any current pain or issues.? 04/10/2022 interval history: patient was brought to the emergency department by EMS patient was found difficulty with breathing and positive methenamine and cannabis, in ER patient was uncooperative combative and patient was intubated and admitted into ICU, on 04/09 patient self-extubated, now out of ICU, currently patient is alert and orient he wants to leave AMA however patient with rhabdomyolysis and elevated CK level which is trending down to 680 today compared to 946 upon arrial, patient kidney function is normal will continue to monitor and hydrate the patient, further recommendation to follow. Review of Systems Review of Systems: All systems reviewed & are unremarkable except as noted in HPI and below ( subjective) Exam Narrative: Patient is comfortable, NAD HEENT: Freddy clear and nonicteric LUNGS: normal respiratory effort ABD: not distended Lower extremities: no edema SKIN: nonjaundiced Neuro: patient alert and orientedx3. Objective Data Vital Signs Vital Signs: Vital Signs - 24 hr 04/09/22 14:
[2022-04-10] MEDS: BENZOCAINE/MENTHOL (*BKC) 18 EA LOZENGE 1 LOZENGE PO (20:30)
[2022-04-10] MEDS: MINERAL OIL/WHITE PETROLATUM OINTMENT 1 APPLIC EACH EYE (20:32)
[2022-04-10 20:56] LABS: Pneumococcal Antigen Urine Not Detected (Not Detected)
[2022-04-11] VITALS: PULSE 63
[2022-04-11 04:00] VITALS: PULSE 62
[2022-04-11 04:40] VITALS: BP 112/80; PULSE 62; RESP 16; TEMP 36.6; O2SAT 98
[2022-04-11 05:03] LABS: Hematocrit 47.1 % (42.0-52.0); Hemoglobin 15.6 g/dL (14.0-18.0); Mean Corpuscular HGB Conc 33.1 g/dl (32-36); Mean Corpuscular Hemoglobin 28.8 pg (26-34); Mean Corpuscular Volume 86.9 fl (80-100); Mean Platelet Volume 10.5 fl (7.4-10.4); Platelet Count Result 255 k/mm3 (150-375); Red Blood Count 5.42 M/mm3 (4.6-6.20); Red Cell Distribution Width 12.4 % (11.5-14.5); White Blood Count 7.2 K/mm3 (4.5-10.0)
[2022-04-11 05:22] LABS: Alanine Aminotransferase 73 U/L (6-50); Albumin Level 4.7 g/dL (3.5-5.1); Alkaline Phosphatase 93 U/L (38-126); Anion Gap 8 mmol/L (8-16); Aspartate Amino Transferase 63 U/L (17-59); Bilirubin,Total 0.7 mg/dL (0.2-1.3); Blood Urea Nitrogen 12 mg/dL (9-20); Carbon Dioxide 28 mmol/L (22-30); Chloride 100 mmol/L (98-107); Creatine Kinase 377 U/L (55-170); Estimated CRCL calculation 93 ml/min; Estimated Glomerular Filt Rate > 60; Glucose 112 mg/dL (65-110); Magnesium 1.9 mg/dL (1.6-2.3); Potassium 4.3 mmol/L (3.4-5.0); Sodium 136 mmol/L (137-145)
[2022-04-11 08:53] VITALS: PULSE 66
[2022-04-11] MEDS: AMOXICILLIN/CLAVULANATE K 875-125 MG TAB 1 TABLET PO (08:55)
[2022-04-11] MEDS: LIDOCAINE 5% PATCH 1 PATCH TRANSDERM (08:57)
[2022-04-11] MEDS: ENOXAPARIN 40 MG/0.4 ML SYRINGE SUB-Q (08:57)
[2022-04-11] MEDS: CYCLOBENZAPRINE HCL 10 MG TABLET PO (08:58)
--- NOTE | 2022-04-11 11:54 | PM.DS ---
DS: Admitting Diagnosis Discharge Date 04/11/2022 Admitting Diagnosis llicite drug OD DS: Discharge Diagnosis Discharge Diagnosis (1) Acute respiratory failure: Code(s): J96.00 - Acute respiratory failure, unspecified whether with hypoxia or hypercapnia Status: Acute Assessment and Plan: ED-HPI Narrative: This is a 37 year old male who presents [facility] for evaluation of overdose. ? 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 EMS gave patient 2 mg narcan IM and 2 mg narcan IV.? Patient became responsive and combative. [place] [employer] have arrived with patient. ? Patient states that he has history of CHF and bone CA .? He states he was diagnosed 3 years ago but he has not had medical care since.? He reports history of using heroin over 15 years ago but denies any drugs today. He states he does not know what happen.? Patient is difficult history and paranoid. ? He denies any current pain or issues.? 04/10/2022 interval history: patient was brought to the emergency department by EMS patient was found difficulty with breathing and positive methenamine and cannabis, in ER patient was uncooperative combative and patient was intubated and admitted into ICU, on 04/09 patient self-extubated, now out of ICU, currently patient is alert and orient he wants to leave AMA however patient with rhabdomyolysis and elevated CK level which is trending down to 680 today compared to 946 upon arrial, patient kidney function is normal will continue to monitor and hydrate the patient, further recommendation to follow. (2) Aspiration pneumonia: Code(s): J69.0 - Pneumonitis due to inhalation of food and vomit Status: Acute Assessment and Plan: patient was somnolent suspect have aspiration pneumonia upon arrival being treated with doxycycline and Zosyn (3) Rhabdomyolysis: Code(s): M62.82 - Rhabdomyolysis Status: Acute Assessment and Plan: patient had taken methenamine and cannabis upon arrival patient was combative resulted in rhabdomyolysis (4) Encephalopathy: Code(s): G93.40 - Encephalopathy, unspecified Status: Acute Assessment and Plan: secondary to illicit drug methenamine and cannabis currently sedated DS: Summary Hospital Course Reason for hospitalization: llicite drug OD Narrative: ED-HPI Narrative: This is a 37 year old male who presents [facility] EMS for evaluation of overdose. ? 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 EMS gave patient 2 mg narcan IM and 2 mg narcan IV.? Patient became responsive and combative. [place] [employer] have arrived with patient. ? Patient states that he has history of CHF and bone CA .? He states he was diagnosed 3 years ago but he has not had medical care since.? He reports history of using heroin over 15 years ago but denies any drugs today. He states he does not know what happen.? Patient is difficult history and paranoid. ? He denies any current pain or issues.? ?patient was brought to the emergency department by EMS patient was found difficulty with breathing and positive methenamine and cannabis, in ER patient was uncooperative combative and patient was intubated and admitted into ICU a trial of weaning the patient off ventilator failed and patient is currently intubated unable few symptoms or history. Hospital Course: ?patient was brought to the emergency department by EMS patient was found difficulty with breathing and positive methenamine and cannabis, in ER patient was uncooperative combative and patient was intubated and admitted into ICU, on 04/09 patient self-extubated, now out of ICU,? currently patient is alert and orient he wants to leave AMA however patient with rhabdomyolysis and elevated CK level which is trending down to 680 today compared to 946 upon arrial, ? patient kidney function is normal will continue to monitor and hydrate the patie
--- NOTE | 2022-04-11 12:20 | PC.NURSE ---
Spoke to patient regarding point of contact. Patient has given hospital permission for Millie Reed (mother [phone]) to receive information regarding his stay. OB admitting has been called x 2 to add mother to the chart. Per patient, patient wants to discharge home to with mom and dad. Mom called this afternoon requesting information regarding this stay, provider notified to speak to mother. Provider went to bedside to confirm with patient regarding fully informing mother of his stay. Permission was given and provider to call and update mother.
[2022-04-11 22:05] LABS: Legionella pneumophila Ag Ur Not Detected (Not Detected)
== END 2022-04-11 14:39 | disposition home or self-care (01) | DRG 812 ==
LOC: ANHED 21:40 → ANHICU 04-08 07:41 → ANH2MED 04-09 21:43
PROVIDERS: Internal Medicine; Admitting Provider Internal Medicine; Emergency Provider General Practice; Visit Provider Family Medicine
DX: T43.621A Poisoning by amphetamines, accidental (unintentional), initial encounter (principal); J96.00 Acute respiratory failure, unspecified whether with hypoxia or hypercapnia; J69.0 Pneumonitis due to inhalation of food and vomit; G92.8 Other toxic encephalopathy; T40.711A Poisoning by cannabis, accidental (unintentional), initial encounter; M62.82 Rhabdomyolysis; Z59.00 Homelessness unspecified; F12.10 Cannabis abuse, uncomplicated; F15.10 Other stimulant abuse, uncomplicated; Z78.1 Physical restraint status
CPT/HCPCS: 31500; 36415; 36600; 51702; 70450; 71045; 80053; 80307; 81001; 82140; 82375; 82550; 82805; 82948; 83050; 83605; 83735; 83880; 84100; 84443; 84484; 85025; 85027; 85730; 87040; 87449; 87899; 93005; 94003; 94640; 96360; 99285; 99291; A9270; C9113; J1650; J2543; J2704; J7030; J7120; J7121

== ENCOUNTER 2024-08-12 18:43 | Emergency (ER) | payer OTHER, SELFPAY ==
--- OUTSIDE RECORDS SUMMARY | 2024-08-12 18:45 | XMS_ITS | Clinical Summary ---
Author Organization [facility] [address] [place] [phone] Care Team Providers Care Chief Learning Officer Name Role Phone No, Physician Primary Care Provider [phone] Allergies No known active allergies Medications No known medications Active Problems Problem Noted Date Diagnosed Date Cellulitis of face 08/21/2021 Closed fracture of lower end of right ulna 01/30 Inflamed sebaceous cyst 03/22/2018 Pilar cyst 03/22/2018 Closed displaced fracture of anterior process of left calcaneus with malunion 04/26/2017 Medical History Medical History Date Comments Hx Other Medical Drug abuse/ Mar ijuana/ Vicodines Disorder of thyroid Thyroid dise ase Seizure disorder (HCC) Seizure d isorder Hx Other Medical Headache, migra ine Peripheral neuropathy Bipolar affective (HCC) Family History Medical History Relation Name Comments Cancer Father Cancer; Cancer Mother Cancer; Hepatitis Mother Hepatitis C; Migraines Mother Migraine; Relation Name Status Comments Father Mother Social History Tobacco Use Types Packs/Day Years Used Date Smoking Tobacco: Every Day Cigarettes Smokeless Tobacco: Current Tobacco Cessation:Ready to Q uit: No; Counseling Given: No Comments:Smoking History Packs/day: 0 Packs Alcohol Use Standard Drinks/Week Comments Yes 0 (1 standard drink = 0.6 oz pur e alcohol) socially Personal Safety Answer Date Recorded Have you ever been in or are you currently in a harmful physical or emotional relationship or is someone making you feel afraid or unsafe? 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 Gender Identity Not on file Sexual Orientation Not on file Obstetrics History Last Filed Vital Signs Vital Sign Reading Time Taken Comments Blood Pressure 105/64 06/30/2023 5:00 AM CDT Pulse 78 06/30/2023 5:00 AM CDT Temperature 36.8 C (98.3 F) 06/30/2023 1:49 AM CDT Respiratory Rate 12 06/30/2023 5:00 AM CDT Oxygen Saturation 92% 06/30/2023 5:00 AM CDT Inhaled Oxygen Concentration - - Weight 59 kg (130 lb) 06/30/2023 1:49 AM CDT Height 172.7 cm (5' 8) 06/30/2023 1:49 AM CDT Body Mass Index 19.77 06/30/2023 1:49 AM CDT Plan of Treatment Health Maintenance Due Date Last Done Comments Depression Screening 1984 Hepatitis C Screening 1984 DTaP/Tdap/Td Vaccine (1 - Tdap) 02/05/1995 Varicella Vaccines (1 of 2 - 13+ 2-dose series) 02/05/1997 Hepatitis B Screening 02/05/2002 Regular Well Visit/Exam 18-64 02/05/2002 Pneumococcal vaccine <65 (1 of 2 - PCV) 02/05/2003 Influenza Vaccine (Season Ended) 2024 12/08/19 18 HPV Vaccines Aged Out No longer eligi ble based on patient's age to complete this topic Insurance [address] [address] [place] [address] [facility] Advance Directives For more information, please contact: [phone] * Full Code (Latest Code Status on File) Date Activated Date Inactivated Comments 08/21/2021 6:26 PM 08/23/2021 5:26 AM Care Teams Chief Learning Officer Relationship Specialty Start Date End Date No, Physician PCP - General 08/21/21
--- OUTSIDE RECORDS SUMMARY | 2024-08-12 18:45 | XMS_ITS | Clinical Summary ---
Author Organization [facility] Address [address] [place] [address] Phone Care Team Providers Care Straightedge Man Name Role Phone Provider, None Primary Care Provider Roseann Das MD Unavailable [phone] Allergies No known active allergies Medications HYDROcodone-cyndi taminophen (NORCO) 5-325 MG TabletIndicatio ns:Renal colic Take 1 Tablet by mouth every 4 hours as needed for Moderate or more severe pain. 12 Tablet 4 Active polyethylene glycol (GLYCOLAX, MIRALAX) 17 g PackIndications :Constipation Take 1 Packet by mouth 2 times daily as needed for Constipation - 1st line. Dissolve in 4-8 oz of liquid. Indications: Constipation 90 Packet 4 Active senna (SENOKOT) 8.6 MG Tablet Take 1 Tablet by mouth daily. 10 Tablet 4 Active naloxone HCl (Narcan) 4 MG/0.1ML Liquid 1 [place] by Nasal route as needed for Opioid Reversal. Administer in one nostril for symptoms of overdose (severe sleepiness, breathing problems, not responsive). Call 911. May repeat 1 spray in alternate nostril in 2-3 minutes if needed. 2 Each 4 Active oxybutynin (DITROPAN) 5 MG Tablet Take 1 Tablet by mouth 2 times daily. 180 Tablet 4 Active naproxen (NAPROSYN) 500 MG Tablet Take 1 Tablet by mouth 2 times daily as needed for Moderate or more severe pain. 20 Tablet 4 Active traMADol (ULTRAM) 50 MG TabletIndicatio ns:Retained urethral stent Take 1 Tablet by mouth every 6 hours as needed for Severe pain. 10 Tablet Active Active Problems Problem Noted Date Diagnosed Date Ureterolithiasis 08/06/2023 Status post placement of ureteral stent 08/06/19 24 Community acquired pneumonia 08/06/2023 Dehydration 08/06/2023 Polysubstance abuse 08/06/2023 Tobacco dependence 08/06/2023 Anxiety disorder 12/07/2017 Immunizations Immunization Administration Dates Next Due Influenza Vaccine, Quadrivalent, PF 12/07/2017 Social History Tobacco Use Types Packs/Day Years Used Date Smoking Tobacco: Some Days Cigarettes Last attempted to quit: 07/12/2016 Smokeless Tobacco: Never Tobacco Cessation:Ready to Q uit: No; Counseling Given: Yes Alcohol Use Standard Drinks/Week Comments Yes 0 (1 standard drink = 0.6 oz pur e alcohol) Socially [facility] Utilities Answer Date Recorded In the past 12 months has [employer], gas, oil, or water [employer] threatened to shut off services in your home? Patient declined 08/06/2023 Social Connection and Isolation Panel Answer Date Recorded In a typical week, how many times do you talk on the phone with family, friends, or neighbors? Patient declined 08/06/2023 How often do you get togethe r with friends or relatives? Patient declined 08/06/2023 How often do you attend sabianist or presybeterian serv ices? Patient declined 08/06/2023 Do you belong to any clubs o r organizations such as sabianist groups, unions, fraternal or athletic groups, or school groups? Patient declined 08/06/2023 How often do you attend meet ings of the clubs or organizations you belong to? Patient declined 08/06/2023 Are you , , di vorced, , never , or living with a partner? Patient declined 08/06/2023 AUDIT-C Answer Date Recorded Q1: How often do you have a drink containing alc ohol? Patient declined 08/06/2023 Q2: How many drinks containi ng alcohol do you have on a typical day when you are drinking? Patient declined 08/06/2023 Q3: How often do you have si x or more drinks on one occasion? Patient declined 08/06/2023 Overall Financial Resource Strain (CARDIA) Answe r Date Recorded How hard is it for you to pa y for the very basics like food, housing, medical care, and heating? Patient declined 08/06/2023 PHQ-2 Answer Date Recorded PHQ-2 Score 0 10/24/2018 [facility] - Occupational Stress Questionnaire Answer Date Recorded Do you feel stress - tense, restless, nervous, or anxious, or unable to sleep at night because your mind is troubled all the time - these days? Patient declined 08/06/2023 Exercise Vital Sign Answer Date Recorde d On average, how many days pe r week do you engage in moderate to strenuous exercise (like a brisk walk)? Patient declined On average, how many minutes do you engage in exercise at this level? Patient declined 08/06/2023 Hunger Vital Sign Answer Date Recorded Within the past 12 months, y ou worried that your food would run out before you got the money to buy more. Patient declined Within the past 12 months, t he food you bought just didn't last and you didn't have money to get more. Patient declined PRAPARE - Transportation Answer Date Re corded In the past 12 months, has l ack of transportation kept you from medical appointments or from getting medications? Patient declined 08/06/2023 In the past 12 months, has l ack of transportation kept you from meetings, work, or from getting things needed for daily living? Patient declined 08/06/2023 Housing Stability Vital Sign Answer Michael e Recorded In the last 12 months, was t here a time when you were not able to pay the mortgage or rent on time? Patient declined 08/06/19 24 In the past 12 months, how m any times have you moved where you were living? 4 08/06/2023 At any time in the past 12 m [facility], were you homeless or living in a intermediate (including now)? Patient declined 08/06/2023 Sex and Gender Information Value Date Recorded Sex Assigned at Not on file Legal Sex Male 9:02 PM CDT Gender Identity Not on file Sexual Orientation Not on file Last Filed Vital Signs Vital Sign Reading Time Taken Comments Blood Pressure 138/76 09/07/2023 10:47 AM CDT Pulse 104 09/07/2023 10:47 AM CDT Temperature 36.1 C (96.9 F) 08/31/2023 11:24 AM CDT Respiratory Rate 19 09/07/2023 10:47 AM CDT Oxygen Saturation 98% 09/07/2023 10:47 AM CDT Inhaled Oxygen Concentration - - Weight 60.3 kg (133 lb) 09/07/2023 10:47 AM CDT Height 172.7 cm (5' 8) 09/07/2023 10:47 AM CDT Body Mass Index 20.22 09/07/2023 10:47 AM CDT Plan of Treatment Health Maintenance Due Date Last Done Comments Hepatitis C Virus (HCV) Screening 1984 TdaP Immunization 1984 Human Papillomavirus (HPV) Immunization (1 - Male 3-dose series) 02/05/1999 Hepatitis B Immunization (1 of 3 - 19+ 3-dose series) 02/05/2003 Pneumococcal Immunization Co mbined (1 of 2 - PCV) 02/05/2003 SARS-COV-2 Immunization ( - ) 10/10/2023 Influenza Immunization (Seas on Ended) 2024 12/07/2017 Respiratory Syncytial Virus (RSV) Immunization (Adult) (1 - 1-dose 75+ series) 02/05/2059 Meningococcal Immunization (ACWY) Aged Out No longer eligible based on patient's age to complete this topic Rotavirus Immunization Aged Out No lo nger eligible based on patient's age to complete this topic Medical Devices Implanted Type Area Planner Chief Device Identifier Shelf Expiration Date Model / Serial / Lot Stent Ureteral 6fr 2.1fr 28cm 2 Pigtail Curve 2 Durometer Taper Tip Loprfl Graduated Polaris Ultra - [id number] Implanted:Qty : 1 on 08/06/2023 by Rosenan Cary MD at [facility] IMPLANT Left: Ureter Divided 03/10/2026 [id number] / [id number] / [id number] Description:NO STRINGS Stent Ureteral 6fr 2.1fr 28cm 2 Pigtail Curve 2 Durometer Taper Tip Loprfl Graduated Polaris Ultra - [id number] Implanted:Qty : 1 on 08/06/2023 by Roseann Cary MD at [facility] IMPLANT Right: Ureter Divided 03/10/2026 [id number] / [id number] / [id number] Additional Health Concerns Infection Onset Date Last Indicated MRSA 06/23/2023 06/23/2023 Insurance MEDICAID [id number] Advance Directives * Full Code (Latest Code Status on File) Date Activated Date Inactivated Comments 08/06/2023 7:28 PM 08/07/2023 1:22 PM CPR-Full Nick atment: FULL ARREST: Attempt Resuscitation/CPR wit intubation and mechanical ventilation. PRE-ARREST: Use entire range of life support measures to stabilize the patient. Care Teams Straightedge Man Relationship Specialty Start Date End Date Provider, None [place] PCP - General 11/12/18 Roseann Cary MD [address] [address] Consulting Physician Urology 09/07/23
--- OUTSIDE RECORDS SUMMARY | 2024-08-12 18:45 | XMS_ITS | Referral Summary ---
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 Social History Tobacco Use Types Packs/Day Years [...] on file 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
--- OUTSIDE RECORDS SUMMARY | 2024-08-12 18:45 | XMS_ITS | Clinical Summary ---
Author Organization [facility] Address [address] [place] [address] Care Team Providers Care Equipment Maint Tech Name Role Phone Unavailable Primary Care Provider Unavailabl e Source Comments [facility],non-owned Affiliates and Associated Physician Practices is amultiple site organization consisting of ambulatory clinics and hospital sitesin [place], [place], [place] and [place]. This disclosure is being madepursuant to the Care Everywhere program and may not contain all information available regarding this patient. Last updated 17.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 Gender Identity Not on file Sexual Orientation Not on file Last Filed Vital Signs Vital Sign Reading Time Taken Comments Blood Pressure 116/68 11/09/2013 8:20 AM CDT Pulse 53 11/09/2013 8:20 AM CDT Temperature 36.6 C (97.8 F) 10/02/2013 10:34 AM CDT Respiratory Rate 18 10/02/2013 10:34 AM CDT Oxygen Saturation 100% 10/02/2013 10:34 AM CDT Inhaled Oxygen Concentration - - Weight 67.1 kg (148 lb) 11/09/2013 8:20 AM CDT Height 172.7 cm (5' 8) 11/09/2013 8:20 AM CDT Body Mass Index 22.5 11/09/2013 8:20 AM CDT Plan of Treatment Health Maintenance Due Date Last Done Comments LIPID TESTING 1984 HIV SCREENING 02/05/1999 HEPATITIS C SCREENING 02/01/2002 DTAP/TDAP/TD VACCINES (1 - Tdap) 02/05/2003 HEPATITIS B VACCINE (1 of 3 - 19+ 3-dose series) 02/05/2003 PNEUMOCOCCAL VACCINE (1 of 2 - PCV) 02/05/2003 COVID-19 VACCINE (1 - 2023-2 5 season) 2023 DEPRESSION SCREENING 02/09/2024 INFLUENZA VACCINE (Season Ended) 2024 ZOSTER VACCINE (1 of 2) 02/05/2034 HIB VACCINE Aged Out No longer eligi ble based on patient's age to complete this topic HPV VACCINE Aged Out No longer eligi ble based on patient's age to complete this topic MENINGOCOCCAL (Group B) VACC INE SHARED DECISION-MAKING Aged Out No longer eligibl e based on patient's age to complete this topic MENINGOCOCCAL GROUPS A/C/Y/W VACCINE Aged Out No longer eligible b ased on patient's age to complete this topic Insurance MEDICAID - OUT OF STATE Member Subscriber Plan / Payer (Ef fective for All Dates) Name:Hernandez Rowley Relation to Subscriber:Self Name:HERNANDEZ ROWLEY Payer ID:Not on file Group ID:Not on file Type:Medicaid Address: [address] [facility]
--- OUTSIDE RECORDS SUMMARY | 2024-08-12 18:45 | XMS_ITS | Encounter Summary ---
Author Organization [facility] Address [address] [place] [address] Phone Care Team Providers Care Bridge Welder Name Role Phone Provider, None Primary Care Provider Roseann Das MD Unavailable Encounter Details Date Type Department Care Team (Late st Contact Info) Description 08/06/2023 Telephone [facility] [address] [place] [address] Roseann Cary MD [address], [address] [address] Social History Tobacco Use Types Packs/Day Years Used Date Smoking Tobacco: Some Days Cigarettes Last attempted to quit: 07/12/2016 Smokeless Tobacco: Never Alcohol Use Standard Drinks/Week Comments Yes 0 (1 standard drink = 0.6 oz pur e alcohol) Socially [facility] Utilities Answer Date Recorded In the past 12 months has [employer], gas, oil, or water [employer] threatened to shut off services in your home? Patient declined 08/06/2023 Social Connection and Isolation Panel Answer Date Recorded In a typical week, how many times do you talk on the phone with family, friends, or neighbors? Patient declined 08/06/2023 How often do you get togethe r with friends or relatives? Patient declined 08/06/2023 How often do you attend muslim or jehovah's witness serv ices? Patient declined 08/06/2023 Do you belong to any clubs o r organizations such as muslim groups, unions, fraternal or athletic groups, or [...] Answer Date Recorded PHQ-2 Score 0 [facility]24/2018 [facility] - Occupational Stress Questionnaire Answer Date Recorded [...] any time in the past 12 m onths, were you homeless or living in a mcfp (including now)? Patient declined 08/06/2023 Sex and Gender Information Value Date Recorded Sex Assigned at Not on file Legal Sex Male 9:02 PM CDT Gender Identity Not on file Sexual Orientation Not on file documented as of this encounter Functional Status * AUDIT-C Score Answer Date of Assessment Author -1 08/06/2023 6:24 PM CDT Christina, Sa richard Gandhi RN * Question Answer Date of Assessment Author Q1: How often do you have a drink containing alcohol? Patient declined 08/06/2023 6:24 PM CDT Christine Vasquez R N Q2: How many drinks containing alcohol do you have on a typical day when you are drinking? Patient declined 08/06/2023 6:24 PM CDT Christine Vasquez R N Q3: How often do you have six or more drinks on one occasion? Patient declined 08/06/2023 6:24 PM CDT Christine Vasquez R N documented as of this encounter Miscellaneous Notes * Telephone Encounter - Estee Mcdermott - 08/09/2023 1:50 PM CDT Pt scheduled on 08-24-2023 * Telephone Encounter - Roseann Cary MD - 08/06/2023 4:13 PM CDT OV in 2 weeks for cysto/stent pull documented in this encounter Plan of Treatment Not on file documented as of this encounter Visit Diagnoses Not on filedocumented in this encounter Additional Health Concerns Infection Onset Date Last Indicated Resolved Time MRSA 06/23/2023 06/23/2023 Assessment Noted Time PHQ-9 Depression Total Score: 0 12/08/19 18 1:00 PM CDT documented as of this encounter Care Teams Bridge Welder Relationship Specialty Start Date End Date Provider, None [place] PCP - General 11/12/18 Roseann Cary MD [address] [facility] [address] [place] [address] Consulting Physician Urology 09/07/23 documented as of this encounter
--- OUTSIDE RECORDS SUMMARY | 2024-08-12 18:45 | XMS_ITS | Encounter Summary ---
Author Organization [facility] Address [address] [place] [place] [address] Phone Care Team Providers Care Clinical Trial Assistant Name Role Phone Provider, None Primary Care Provider Roseann Das MD Unavailable [phone] Encounter Details Date Type Department Care Team (Late st Contact Info) Description 08/28/2023 Telephone [facility] [address] [place] [address] Roseann Cary MD [address], [address] [address] Social History Tobacco Use Types Packs/Day Years Used Date Smoking Tobacco: Some Days Cigarettes Last attempted to quit: 07/12/2016 Smokeless Tobacco: Never Alcohol Use Standard Drinks/Week Comments Yes 0 (1 standard drink = 0.6 oz pur e alcohol) Socially [facility] Utilities Answer Date Recorded In the past 12 months has [employer], gas, oil, or water [employer] threatened to shut off services in your home? Patient declined 08/06/2023 Social Connection and Isolation Panel Answer Date Recorded In a typical week, how many times do you talk on the phone with family, friends, or neighbors? Patient declined 08/06/2023 How often do you get togethe r with friends or relatives? Patient declined 08/06/2023 How often do you attend pentecostalism or caodaism serv ices? Patient declined 08/06/2023 Do you belong to any clubs o r organizations such as pentecostalism groups, unions, fraternal or athletic groups, or [...] Answer Date Recorded PHQ-2 Score 0 [facility]/24/[facility] - Occupational Stress Questionnaire Answer Date Recorded [...] any time in the past 12 m ont, were you homeless or living in a care home (including now)? Patient declined 08/06/2023 Sex and Gender Information Value Date Recorded Sex Assigned at Not on file Legal Sex Male 9:02 PM CDT Gender Identity Not on file Sexual Orientation Not on file documented as of this encounter Miscellaneous Notes * Telephone Encounter - Estee Mcdermott - 08/30/2023 1:49 PM CDT Called phone number on chart which is his moms, she said he is not there and doesn't know when she will see him. She also stated she didn't have a number for him but would tell him to call the officewhen he seen him. * Telephone Encounter - Roseann Cary MD - 08/28/2023 5:35 PM CDT Needs f/u for cysto/stent pull. Please ensure he has f/u setup as he missed appt documented in this encounter Plan of Treatment Not on file documented as of this encounter Visit Diagnoses Not on filedocumented in this encounter Additional Health Concerns Infection Onset Date Last Indicated Resolved Time MRSA 06/23/2023 06/23/2023 Assessment Noted Time PHQ-9 Depression Total Score: 0 12/08/19 18 1:00 PM CDT documented as of this encounter Care Teams Clinical Trial Assistant Relationship Specialty Start Date End Date Provider, None [place] PCP - General 11/12/18 Roseann Cary MD [address] [facility] [address] [place] [address] Consulting Physician Urology 09/07/23 documented as of this encounter
[2024-08-12 18:56] VITALS: BP 120/66; PULSE 76; RESP 18; TEMP 36.7; O2SAT 100
--- NOTE | 2024-08-12 18:59 | ED_ITS ---
HPI - Skin/Abscess/Foreign Bdy General Chief complaint: Skin/Abscess/Foreign Body Stated complaint: Skin Sore Patient presents to the [facility] with complaints of removing a tick right below his belly button about 2 weeks ago area has been red, swollen, and tender to touch since that time and slowly worsening. Patient also noted a flare up of his other source on his chin and left lower arm. Patient noted having staff in the past and believes that is what this is. Patient reports cleaning the areas with hydrogen peroxide and alcohol. does note some drainage from 1 sore left forearm. Denies fever, chills body aches. Related Data Allergies Allergy/AdvReac Type Severity Reaction Status Date / Time No Known Allergies Allergy Verified 08/12/24 19:08 Review of Systems Constitutional: Constitutional: Reports as per HPI, Denies chills, Denies fatigue, Denies fever(s) and Denies weakness Eyes: Eyes: Reports no additional eye complaints Cardiovascular: Cardiovascular: Reports no additional cardiovascular complaints Respiratory: Respiratory: Reports no additional respiratory complaints Gastrointestinal: Gastrointestinal: Reports no additional gastrointestinal complaints Genitourinary: Genitourinary: Reports no additional male genitourinary complaints Musculoskeletal: Musculoskeletal: Reports no additional musculoskeletal complaints Integumentary/Breasts: Skin/Breast: Reports as per HPI, Reports pruritus, Reports erythema, Reports rash and Reports skin ulcer ( below belly button, bilateral forearm) Neurologic: Reports as per HPI, Denies numbness and Denies weakness Psychiatric: Psychiatric: Reports no additional psychiatric complaints Endocrine: Endocrine: Reports no additional endocrine complaints Hematologic/Lymphatic: Hematologic/Lymphatic: Reports no additional hematolog ic/lymphatic complaints Allergic/Immunologic: Allergic/Immunologic: Reports no additional allergic/immunologic complaints [facility] Past Medical History Medical History (Updated 08/12/24 @ 19:17 by BUSHRA Ulrich-C) Medical history unknown Surgical History Surgical History (Updated 04/08/22 @ 15:22 by Isabela Carrero MD) Surgical history unknown Social History Social History Smoking packs per day: 0.25 Smoking cigarettes per day: 5.0 Years smoked: 22 Smoking pack-years: 5.50 Smoking status: Former smoker Tobacco type: cigarettes Alcohol intake: unknown Substance use: current Substance use type: marijuana and methamphetamine Lack of Transportation: No Lack of Food: Sometimes True Current Housing: I Do Not Have Housing Concerned About Future Housing: No Difficulty Paying Gas/Electric Bills: Decline to Answer Difficulty Paying for Meds: Decline to Answer Currently Unemployed: No Education: Decline to Answer Difficulty w/ Childcare or Family Care: No Spiritual care concerns: No Exam Const: General: healthy appearing and no acute distress Nutritional Appearance: well nourished Orientation/consciousness: patient oriented x3 Limitations: no limitations HENMT: Face/Nose/Sinus: Normal external nose present and Normal nares present Face and sinus: normal facial exam Mouth: Yes Normal oral and palatal mucosa present Throat: posterior oropharynx normal Other: four open sores noted on chin- no active drainage, crusting, or streaking noted. Neck: Neck: no lymphadenopathy Resp: Effort & Inspection: normal respiratory effort Auscultation: clear to auscultation bilaterally Cardio: Rate: regular rate Rhythm: regular rhythm GI: GI Palp: Yes Soft to palpation, No Tenderness to palpation present (GI) and No Guarding due to palpation present (GI) Auscultation: normal bowel sounds Skin: General skin exam: normal color Wounds: wounds noted Other: several open sores to bilateral forearms- 1 area left forearm yellow drainage noted. circular area of erythema with center scabbed area to umbilicus- tender with palpation- firm area, no fluctuance. Neuro: General: patient oriented x3 Speech: normal speech Gait exam (Neuro): Normal gait present Psych: Mental Status: mental status grossly normal Affect: normal affect Attitude: cooperative Course Course Level of Care: Express Care Visit Vital Signs Vital signs: Vital Signs Temperature 98.1 F 08/12/24 18:56 Pulse Rate 76 08/12/24 18:56 Respiratory Rate 18 08/12/24 18:56 Blood Pressure 120/66 08/12/24 18:56 Pulse Oximetry 100 08/12/24 18:56 Oxygen Delivery Room Air 08/12/24 18:56 Temperature 98.1 F 08/12/24 18:56 Pulse Rate 76 08/12/24 18:56 Respiratory Rate 18 08/12/24 18:56 Blood Pressure 120/66 08/12/24 18:56 Pulse Oximetry 100 08/12/24 18:56 Oxygen Delivery Room Air 08/12/24 18:56 MDM - Skin/Abscess/Foreign Bdy MDM Narrative Medical decision making narrative: Discharge instructions reviewed with patient, as well as provided in writing per nursing staff. The instructions also include specific and strict return/GO TO THE ER as well as f/u information. All questions have been answered, and the patient deny any further questions with discharge and discharge plan. Differential Diagnosis Differential diagnosis: Likely abscess of skin or subcutaneous tissue, urticaria, cellulitis, insect bites, impetigo and contact dermatitis Medical Records Attestation: I reviewed the patient's medical records. Discharge Plan Discharge Clinical Impression: Abscess of skin or subcutaneous tissue, Cellulitis, Tick bite of abdomen Patient Disposition: Home Condition: Stable Instructions: Antibiotic Form, Cellulitis (ED), Tick Bite (ED) Additional Instructions: Clean with soap and water only; Avoid using alcohol and peroxide. Elevate the affected area if possible Alternate Tylenol/ibuprofen for as needed for pain Acetaminophen(Tylenol) 650- 1000mg every 4-6hours with max of 4000mg/day. Nonsteroidal anti-inflammatory agent (NSAIDs-ibuprofen): 400mg every 4-6hours with max 2400mg/day Take antibiotic until it's gone. Please schedule a follow up visit with your personal physician for further evaluation and treatment within 3-5days OR if your symptoms persist, change or worsen significantly before you can contact your personal physician then please, without delay, go to the emergency department for further evaluation. Patient Language: Persian Prescriptions: New sulfamethoxazole-trimethoprim [Bactrim DS] 800-160 mg tablet 1 tablet PO Q12H Qty: 20 0RF mupirocin [Centany] 2 % ointment 1 applic topical BID Qty: 22 0RF Follow-up/Referrals: PHYSICIAN,PLUG MACHINE OPERATOR [Primary Care Provider] - Time of Disposition: 19:18
== END 2024-08-12 19:19 | disposition home or self-care (01) ==
PROVIDERS: Emergency Provider Nurse Practitioner Family
DX: L02.414 Cutaneous abscess of left upper limb (principal); L03.211 Cellulitis of face; S30.861A Insect bite (nonvenomous) of abdominal wall, initial encounter; W57.XXXA Bitten or stung by nonvenomous insect and other nonvenomous arthropods, initial encounter; Z87.891 Personal history of nicotine dependence
CPT/HCPCS: 99213; G0463

== ENCOUNTER 2024-10-09 14:55 | Emergency (ER) | payer OTHER, SELFPAY ==
--- OUTSIDE RECORDS SUMMARY | 2024-10-09 14:57 | XMS_ITS | Clinical Summary ---
Author Organization [facility] Address [address] [place] [address] Phone Care Team Providers Care Security Installation Sales Technician Name Role Phone Provider, None Primary Care Provider Roseann Das MD Unavailable [phone] Allergies No known active allergies Medications [...] naloxone HCl (Narcan) 4 MG/0.1ML Liquid 1 [place] by Nasal route as needed for Opioid [...] 08/06/2023 Tobacco dependence 08/06/2023 Anxiety disorder 12/07/2017 Encounters Date Type Department Care Team Description 09/15/2024 Telephone [facility] [address] [place] [address] Roseann Cary MD from Last 3 Months Immunizations Immunization Administration Dates Next Due Influenza Vaccine, Quadrivalent, PF 12/07/2017 Social History Tobacco Use Types Packs/Day Years Used Date Smoking Tobacco: Some Days Cigarettes Last attempted to quit: 07/12/2016 Smokeless Tobacco: Never Tobacco Cessation:Ready to Q uit: No; Counseling Given: Yes Alcohol Use Standard Drinks/Week Comments Yes 0 (1 standard drink = 0.6 oz pur e alcohol) Socially [employer] Utilities Answer Date Recorded In the past 12 months has [employer] electric, gas, oil, or water [employer] threatened to shut off services in your home? Patient declined 08/06/2023 Social Connection and Isolation Panel Answer Date Recorded In a typical week, how many times do you talk on the phone with family, friends, or neighbors? Patient declined 08/06/2023 How often do you get togethe r with friends or relatives? Patient declined 08/06/2023 How often do you attend shinto or hinduism serv ices? Patient declined 08/06/2023 Do you belong to any clubs o r organizations such as shinto groups, unions, fraternal or athletic groups, or [...] Answer Date Recorded PHQ-2 Score 0 10/24/2018 [facility] - Occupational Stress Questionnaire Answer Date Recorded [...] any time in the past 12 m [facility], were you homeless or living in a [...] Virus (HCV) Screening 1984 TdaP Immunization 1984 Hepatitis B Immunization (1 of 3 - 19+ 3-dose series) 02/05/2003 Pneumococcal Immunization Co mbined (1 of 2 - PCV) 02/05/2003 Human Papillomavirus (HPV) Immunization (1 - 3-dose SCDM series) 02/05/2011 Influenza Immunization (#1) 2024 12/07/2017 SARS-COV-2 Immunization (1 - season) 2024 Respiratory Syncytial Virus (RSV) Immunization (Adult) (1 - 1-dose 75+ series) 02/05/2059 Meningococcal Immunization (ACWY) Aged Out No longer eligible based on patient's age to complete this topic Rotavirus Immunization Aged Out No lo nger eligible based on patient's age to complete this topic Medical Devices Implanted Type Area Carriage Operator Device Identifier Shelf Expiration Date Model / Serial / Lot Stent Ureteral 6fr 2.1fr 28cm 2 Pigtail Curve 2 Durometer Taper Tip Loprfl Graduated Polaris Ultra - [id number] Implanted:Qty : 1 on 08/06/2023 by Roseann Cary MD at [facility] IMPLANT Left: Ureter [employer] 03/10/2026 [id number] / [id number] / [id number] Description:NO STRINGS Stent Ureteral 6fr 2.1fr 28cm 2 Pigtail Curve 2 Durometer Taper Tip Loprfl Graduated Polaris Ultra - [id number] Implanted:Qty : 1 on 08/06/2023 by Roseann Cary MD at [facility] IMPLANT Right: Ureter [employer] 03/10/2026 [id number] / [id number] / [id number] Additional Health Concerns Infection Onset Date Last Indicated MRSA 06/23/2023 06/23/2023 Insurance MEDICAID [id number] GENER[employer] Advance Directives * Full Code (Latest Code Status on File) Date Activated Date Inactivated Comments 08/06/2023 7:28 PM 08/07/2023 1:22 PM CPR-Full Nick atment: FULL ARREST: Attempt Resuscitation/CPR wit intubation and mechanical ventilation. PRE-ARREST: Use entire range of life support measures to stabilize the patient. Care Teams Security Installation Sales Technician Relationship Specialty Start Date End Date Provider, None [place] PCP - General 11/12/18 Roseann Cary MD [address] [facility] [address] [place] [address] Consulting Physician Urology 09/07/23
--- OUTSIDE RECORDS SUMMARY | 2024-10-09 14:58 | XMS_ITS | Encounter Summary ---
Author Organization [facility] Address [address] [place] [place] [address] Phone Care Team Providers Care Neurosurgery Research Director Name Role Phone Provider, None Primary Care Provider Roseann Das MD Unavailable [phone] Encounter Details Date Type Department Care Team (Late st Contact Info) Description 08/06/2023 Telephone [facility] [address] [place] [address] Roseann Cary MD [address], [address] [address] Social History Tobacco Use Types Packs/Day Years Used Date Smoking Tobacco: Some Days Cigarettes Last attempted to quit: 07/12/2016 Smokeless Tobacco: Never Alcohol Use Standard Drinks/Week Comments Yes 0 (1 standard drink = 0.6 oz pur e alcohol) Socially [employer] Utilities Answer Date Recorded In the past 12 months has [employer], gas, oil, or water [employer] threatened to shut off services in your home? Patient declined 08/06/2023 Social Connection and Isolation Panel Answer Date Recorded In a typical week, how many times do you talk on the phone with family, friends, or neighbors? Patient declined 08/06/2023 How often do you get togethe r with friends or relatives? Patient declined 08/06/2023 How often do you attend cheondoism or oriental orthodox serv ices? Patient declined 08/06/2023 Do you belong to any clubs o r organizations such as cheondoism groups, unions, fraternal or athletic groups, or [...] Answer Date Recorded PHQ-2 Score 0 10/24/2018 [facility] - [facility]ational Stress Questionnaire Answer Date Recorded [...] were you homeless or living in a fci (including now)? Patient declined 08/06/2023 Sex and [...] documented as of this encounter Care Teams Neurosurgery Research Director Relationship Specialty Start Date End Date Provider, None [place] PCP - General 11/12/18 Roseann Cary MD [address]2 [facility] [address] [place] [address] Consulting Physician Urology 09/07/23 documented as of this encounter
--- OUTSIDE RECORDS SUMMARY | 2024-10-09 14:58 | XMS_ITS | Encounter Summary ---
Author Organization [facility] Address [address] [facility] [place] [address] Phone Care Team Providers Care Staff Design Engineer Name Role Phone Provider, None Primary Care Provider Roseann Das MD Unavailable [phone] Encounter Details Date Type Department Care Team (Late st Contact Info) Description 08/28/2023 Telephone [facility] [address] [place] [address] Roseann Cary MD [address], [address] [address] Social History Tobacco Use Types Packs/Day Years Used Date Smoking Tobacco: Some Days Cigarettes Last attempted to quit: 07/12/2016 Smokeless Tobacco: Never Alcohol Use Standard Drinks/Week Comments Yes 0 (1 standard drink = 0.6 oz pur e alcohol) Socially [employer] Utilities Answer Date Recorded In the past 12 months has [employer], gas, oil, or water [employer] threatened to shut off services in your home? Patient declined 08/06/2023 Social Connection and Isolation Panel Answer Date Recorded In a typical week, how many times do you talk on the phone with family, friends, or neighbors? Patient declined 08/06/2023 How often do you get togethe r with friends or relatives? Patient declined 08/06/2023 How often do you attend caodaism or anglican serv ices? Patient declined 08/06/2023 Do you belong to any clubs o r organizations such as caodaism groups, unions, fraternal or athletic groups, or [...] Answer Date Recorded PHQ-2 Score 0 10/24/2018 [facility] - Occupational Stress Questionnaire Answer Date Recorded [...] were you homeless or living in a nursing home (including now)? Patient declined 08/06/2023 Sex [...] documented as of this encounter Care Teams Staff Design Engineer Relationship Specialty Start Date End Date Provider, None [place] PCP - General 11/12/18 Roseann Cary MD [address]2 [facility] [address] [place] [address] Consulting Physician Urology 09/07/23 documented as of this encounter
--- OUTSIDE RECORDS SUMMARY | 2024-10-09 14:58 | XMS_ITS | Clinical Summary ---
Author Organization [facility] Address [address] [place] [address] Care Team Providers Care Telemetry Nurse Name Role Phone Unavailable Primary Care Provider Unavailabl e Source Comments [facility],non-owned Affiliates and Associated Physician Practices is amultiple site organization consisting of ambulatory clinics and hospital sitesin [place], [place], [place] and [place]. This disclosure is being madepursuant to the Care Everywhere program and may not contain all information available regarding this patient. 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
--- OUTSIDE RECORDS SUMMARY | 2024-10-09 14:59 | XMS_ITS | Clinical Summary ---
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 Gender Identity Not on file Sexual Orientation [...] (1 of 2 - 13+ 2-dose series) 1996 Hepatitis B Screening 02/05/2002 Regular Well Visit/Exam 18-64 02/05/2002 Pneumococcal vaccine <65 (1 of 2 - PCV) 02/05/2003 HPV Vaccines (1 - 3-dose SCDM series) 02/05/2011 Influenza Vaccine (#1) 2024 12/07/[address] [place] [address] MEDICAID [facility] Advance Directives For more information, please contact: [phone] * Full Code (Latest Code Status on File) Date Activated Date Inactivated Comments 08/21/2021 6:26 PM 08/23/2021 5:26 AM Care Teams Property Claims Manager Relationship Specialty Start Date End Date No, Physician PCP - General 7/14/22
[2024-10-09 15:04] VITALS: BP 139/82; PULSE 67; RESP 16; TEMP 36.5; O2SAT 100
--- NOTE | 2024-10-09 15:45 | ED.SKABFB ---
HPI - Skin/Abscess/Foreign Bdy General Chief complaint: Skin/Abscess/Foreign Body Stated complaint: possible MERSA Time Seen by Provider: 10/09/24 15:30 Source: patient and RN notes reviewed Mode of arrival: ambulatory Limitations: no limitations History of Present Illness HPI narrative: 39-year-old male presents to the [facility] Care complaining of wounds on his body the last week and half weeks. Patient says they are pruritic has been picking at them family states they are scattered throughout his arms, trunk, legs, face. Since then he has as increased redness, swelling, pain. Patient denies any drainage. Patient denies any fevers. Patient reports he has a history of MRSA. Related Data Allergies Allergy/AdvReac Type Severity Reaction Status Date / Time No Known Allergies Allergy Verified 10/09/24 15:09 Review of Systems Review of Systems: CONSTITUTIONAL: Denies fever, chills, or sweats. EYES: Denies visual changes, redness, or discharge. ENT: Denies rhinorrhea, congestion, sore throat, or otalgia. CARDIOVASCULAR: Denies chest pain, palpitations, or edema. RESPIRATORY: Denies cough or dyspnea. GASTROINTESTINAL: Denies abdominal pain, nausea, vomiting, or diarrhea. GENITOURINARY: Denies dysuria or hematuria. SKIN: Denies rash or itching. Positive for wounds. MUSCULOSKELETAL: Denies back pain, joint pain, or myalgia. NEUROLOGIC: Denies headache, numbness, or weakness. PSYCHIATRIC: Denies anxiety or depression. All other systems reviewed are negative, except as documented in HPI. [facility] Past Medical History Medical History Medical history unknown Surgical History Surgical History Surgical history unknown Social History Social History Smoking packs per day: 0.25 Smoking cigarettes per day: 5.0 Years smoked: 22 Smoking pack-years: 5.50 Smoking status: Former smoker Tobacco type: cigarettes Alcohol intake: unknown Substance use: current Substance use type: marijuana and methamphetamine Lack of Transportation: No Lack of Food: Sometimes True Current Housing: I Do Not Have Housing Concerned About Future Housing: No Difficulty Paying Gas/Electric Bills: Decline to Answer Difficulty Paying for Meds: Decline to Answer Currently Unemployed: No Education: Decline to Answer Difficulty w/ Childcare or Family Care: No Spiritual care concerns: No Comments At the time of my signature, I reviewed and agree with the nursing past medical, surgical, social, and family history. There is no relevant family history pertinent to the patient complaint. Exam Narrative: GENERAL: This is a well-nourished, well-developed adult, in no apparent distress. They are non ill-appearing, nontoxic appearing. HEAD: normocephalic, atraumatic. EYES: Sclera clear/white. Conjunctiva normal. Vision is grossly intact. Extraocular movements intact EARS: External ears normal, Hearing grossly intact. NOSE: External nose normal THROAT: Mucous membranes moist, NECK: Neck supple, CARDIOVASCULAR: Regular rate and rhythm RESPIRATORY: Respiratory rate normal, respiratory effort nonlabored, no respiratory distress[ SKIN: Erythematous papular lesions that are excoriated and scattered throughout the patient's face, bilateral arms, scantly on the chest and abdomen, and bilateral lower legs. They are nontender to palpate. Surrounding cellulitis present to some lesions. No area of fluctuance or induration. No exudate. NEURO: awake, alert, and oriented to person, place and time. There were no obvious focal neurologic abnormalities. EXTREMITIES: No joint tenderness, effusion, or edema noted. Course Course Emergency Course: Portions of this record may have been created with voice recognition software Level of Care: Express Care Visit Vital Signs Vital signs: Vital Signs Temperature 97.7 F 10/09/24 15:04 Pulse Rate 67 10/09/24 15:04 Respiratory Rate 16 10/09/24 15:04 Blood Pressure 139/82 10/09/24 15:04 Pulse Oximetry 100 10/09/24 15:04 Oxygen Delivery Room Air 10/09/24 15:04 Temperature 97.7 F 10/09/24 15:04 Pulse Rate 67 10/09/24 15:04 Respiratory Rate 16 10/09/24 15:04 Blood Pressure 139/82 10/09/24 15:04 Pulse Oximetry 100 10/09/24 15:04 Oxygen Delivery Room Air 10/09/24 15:04 Reviewed MDM - Skin/Abscess/Foreign Bdy MDM Narrative Medical decision making narrative: Patient likely has caused cellulitis by picking at his wounds. Patient's history of MRSA will go ahead and cover with Bactrim. Advised patient he may take Zyrtec or Claritin as needed for itchiness. Advised patient to avoid scratching areas and wash them daily with mild soap and water. Discussed physical exam findings. Advised supportive measures and signs/symptoms to go to the ER. Pt is appropriate for outpt treatment and f/u. Differential Diagnosis Differential diagnosis: Likely abscess of skin or subcutaneous tissue, cellulitis, eczema, insect bites, impetigo and contact dermatitis Critical Care Time Critical Care Time Critical Care Time: No Discharge Plan Discharge Clinical Impression: Skin infection Patient Disposition: Home Condition: Stable Instructions: Antibiotic Form, Cellulitis (ED) Additional Instructions: Clean with mild soap and water only and wash daily; Avoid using alcohol and peroxide. You may take ibuprofen 600 mg to 800 mg every 6-8 hours. Do not exceed more than 800 mg of ibuprofen per dose. Do not exceed more than 3200 mg ibuprofen in a day. You may take up to 1000 mg Tylenol every 6-8 hours. Do not exceed 1000 mg per dose, do exceed more than 4000 mg of Tylenol in a day. Take antibiotic until it's gone. Please schedule a follow up visit with your personal physician for further evaluation and treatment within 3-5 days The developed worsening redness, swelling, pain, fevers, green/yellow drainage or any other concerns please go to the ER immediately. Patient Language: Venezuelan Prescriptions: New sulfamethoxazole-trimethoprim [Bactrim DS] 800-160 mg tablet 1 tablet PO Q12H 7 Days Qty: 14 0RF Follow-up/Referrals: PHYSICIAN,GRADUATE STUDENT INSTRUCTOR [Primary Care Provider, Internal Medicine] Time of Disposition: 15:45
== END 2024-10-09 15:51 | disposition home or self-care (01) ==
DX: L08.9 Local infection of the skin and subcutaneous tissue, unspecified (principal); Z86.14 Personal history of Methicillin resistant Staphylococcus aureus infection; F12.90 Cannabis use, unspecified, uncomplicated; F15.90 Other stimulant use, unspecified, uncomplicated; Z87.891 Personal history of nicotine dependence
CPT/HCPCS: 99213; G0463